=== PATIENT | male | born 1990 | race African-American/Black ===

== ENCOUNTER 2017-04-07 14:39 | Inpatient (IN) | payer MEDICAID ==
[~2017-04-07] VITALS: Ht 170.2 cm; Wt 79.4 kg
[2017-04-07] MEDS ORDERED: ONDANSETRON 4MG ODT PO ONE (15:30)
[2017-04-07] MEDS ORDERED: SODIUM CHLORIDE 0.9% 1,000 ML IV ONE (15:30)
[2017-04-07 16:24] LABS: BASOPHILS % 0.1 % (0.0-2.0); HEMATOCRIT. 43.4 % (42.0-52.0); HEMOGLOBIN. 14.9 g/dL (14.0-18.0); LYMPHOCYTES % 7.3 % (20.0-50.0); MEAN CORPUSCULAR HEMOGLOBIN 32.4 pg (28.0-32.0); MEAN CORPUSCULAR VOLUME 94.4 fL (80.0-94.0); MEAN PLATELET VOLUME 10.2 fl (7.4-10.4); MONOCYTES % 5.2 % (2.0-8.0); NEUTROPHILS % 87.4 % (40.0-76.0); PLATELET 254 x1000/uL (130-400); RED CELL DISTRIBUTION WIDTH 12.7 % (11.6-14.6)
[2017-04-07 16:36] LABS: CHLORIDE 94 mEq/L (98-107)
[2017-04-07 16:41] LABS: CARBON DIOXIDE 31 mEq/L (21-32)
[2017-04-07] MEDS ORDERED: INSULIN REGULAR (HUMULIN R) 300UNITS/3ML SUBCUT NR (16:45)
[2017-04-07] MEDS ORDERED: SODIUM CHLORIDE 0.9% 1000ML BAG (SEPSIS BOLUS) IV ONE (17:00)
[2017-04-07] MEDS ORDERED: SODIUM CHLORIDE 0.9% 2,430 ML IV NR (17:15)
[2017-04-07 17:28] LABS: BG BASE EXCESS 3.4 mmol/L (-2.0-2.0); BG CARBOXYHEMOGLOBIN 0.9 % (0.5-1.5); BG FRACTION INSPIRED OXYGEN 21; BG HCO3 ACT 27.9 mmol/L (22.0-26.0); BG METHEMOGLOBIN 0.3 % (0.0-1.5); BG OXYHEMOGLOBIN 95.8 % (94.0-97.0); BG PCO2 41.9 mmHg (35.0-45.0); BG PH 7.441 (7.350-7.450); BG PO2 91.3 mmHg (75.0-100.0); BG SAMPLE SITE RIGHT RADIAL; BG TOTAL HEMOGLOBIN 14.8 g/dL (12.0-18.0); BG VENT MODE ROOM AIR
[2017-04-07 18:19] LABS: CLARITY URINE CLEAR (CLEAR); COLOR URINE YELLOW (YELLOW); GLUCOSE URINE 3+ (NEGATIVE); KETONES URINE 2+ (NEGATIVE); LEUKOCYTE ESTERASE URINE NEGATIVE (NEGATIVE); NITRITE URINE NEGATIVE (NEGATIVE); OCCULT BLOOD URINE 2+ (NEGATIVE); PH URINE 5.5 (4.5-8.0); PROTEIN URINE 2+ (NEGATIVE); SPECIFIC GRAVITY URINE 1.038 (1.005-1.030); UROBILINOGEN URINE 0.2 E.U./dL (0.2-1.0)
[2017-04-07] MEDS ORDERED: BENAZEPRIL 20MG TABLET PO ONE (18:30)
[2017-04-07] MEDS ORDERED: MORPHINE SULFATE 4 MG/ML CPJ (NOT FOR IM USE) IV ONE (18:30)
[2017-04-07] MEDS ORDERED: DIPHENHYDRAMINE 50MG/ML VIAL IV PRN (18:45)
[2017-04-07] MEDS ORDERED: ONDANSETRON HCL 4MG/2ML VIAL IV PRN (18:45)
[2017-04-07] MEDS ORDERED: ACETAMINOPHEN 325MG TABLET PO PRN (18:45)
[2017-04-07] MEDS ORDERED: MAGNESIUM/ALUMINUM HYDROXIDE/SIMETHICONE 30ML UDC PO PRN (18:45)
[2017-04-07] MEDS ORDERED: DEXTROSE 50% WATER 50ML SYRINGE IV PRN (18:45)
[2017-04-07] MEDS ORDERED: PANTOPRAZOLE SODIUM 40 MG/VIAL IV SCH (21:00)
[2017-04-07 23:40] VITALS: BP 155/105
[2017-04-08 00:20] VITALS: BP 154/105
[2017-04-08] MEDS: BLOOD SUGAR DIAGNOSTIC STRIP TEST SCH ×5 (01:12→20:47)
[2017-04-08] MEDS: MORPHINE SULFATE 4 MG/ML CPJ (NOT FOR IM USE) IV PRN ×4 (01:28→15:42)
[2017-04-08] MEDS: SODIUM CHLORIDE 0.9% 1,000 ML IV SCH ×4 (01:29→20:47)
[2017-04-08] MEDS: INSULIN LISPRO 100 UNITS/ML SUBCUT SCH ×5 (01:54→22:02)
[2017-04-08] MEDS: CLONIDINE 0.1MG TABLET PO PRN ×2 (03:20→12:33)
[2017-04-08 04:00] VITALS: BP 134/87
[2017-04-08 08:00] VITALS: BP 142/93
[2017-04-08] MEDS: PANTOPRAZOLE SODIUM 40 MG/VIAL IV SCH (08:55)
[2017-04-08 12:00] VITALS: BP 168/108
[2017-04-08 16:00] VITALS: BP 139/111
[2017-04-08 20:00] VITALS: BP 128/98
[2017-04-08] MEDS ORDERED: INSULIN DETEMIR UD 100 UNITS/ML SYR SUBCUT SCH ×2 (22:00)
[2017-04-09] VITALS: BP 124/92
[2017-04-09 00:51] LABS: *AMPHETAMINES SCREEN URINE NEGATIVE (NEGATIVE); *BARBITURATES SCREEN URINE NEGATIVE (NEGATIVE); *BENZODIAZEPINES SCREEN URINE NEGATIVE (NEGATIVE); *COCAINE SCREEN URINE NEGATIVE (NEGATIVE); CANNABINOID URINE SCREEN PRESUMTIVE POSITIVE (NEGATIVE); METHADONE URINE SCREEN NEGATIVE (NEGATIVE); OPIATES URINE SCREEN PRESUMTIVE POSITIVE (NEGATIVE); PHENCYCLIDINE URINE SCREEN NEGATIVE (NEGATIVE)
[2017-04-09] MEDS: MORPHINE SULFATE 4 MG/ML CPJ (NOT FOR IM USE) IV PRN ×2 (01:25→11:52)
[2017-04-09 04:00] VITALS: BP 131/96
[2017-04-09] MEDS: BLOOD SUGAR DIAGNOSTIC STRIP TEST SCH ×2 (06:40→12:36)
[2017-04-09] MEDS: INSULIN LISPRO 100 UNITS/ML SUBCUT SCH ×2 (07:50→12:38)
[2017-04-09 08:00] VITALS: BP 137/99
[2017-04-09] MEDS ORDERED: LOSARTAN POTASSIUM 100 MG TABLET PO SCH (09:00)
[2017-04-09] MEDS: PANTOPRAZOLE SODIUM 40 MG/VIAL IV SCH (10:40)
[2017-04-09] MEDS: CLONIDINE 0.1MG TABLET PO PRN (11:51)
[2017-04-09 12:00] VITALS: BP 164/121
[2017-04-09 15:23] VITALS: BP 153/110
[2017-04-09 16:00] VITALS: BP 153/110
== END 2017-04-09 16:55 | disposition home or self-care (01) | DRG 241 ==
LOC: ER 14:40 → 6EST 17:47 → ENRESERV 22:34
PROVIDERS: ADMIT Internal Medicine; ATTEND Internal Medicine
DX: K29.70 Gastritis, unspecified, without bleeding (principal); E10.10 Type 1 diabetes mellitus with ketoacidosis without coma; K31.84 Gastroparesis; E10.43 Type 1 diabetes mellitus with diabetic autonomic (poly)neuropathy; I10 Essential (primary) hypertension; F17.210 Nicotine dependence, cigarettes, uncomplicated; Z90.49 Acquired absence of other specified parts of digestive tract; Z59.0 Homelessness
CPT/HCPCS: 36415; 36600; 71010; 80053; 80305; 81001; 82010; 82375; 82805; 82962; 83036; 85025; 96361; 96372; 96374; 99285; C9113; J1815; J2270; J2405; J7030; Q0162

== ENCOUNTER 2020-03-25 02:12 | Emergency (ER) | payer MEDICAID ==
[~2020-03-25] VITALS: Ht 177.8 cm; Wt 86.0 kg
[2020-03-25 05:20] VITALS: BP 159/106
== END 2020-03-25 05:20 | disposition home or self-care (01) ==
LOC: ER 02:44
DX: E11.649 Type 2 diabetes mellitus with hypoglycemia without coma (principal); R55 Syncope and collapse; I10 Essential (primary) hypertension; F12.10 Cannabis abuse, uncomplicated
CPT/HCPCS: 82962; 99283

== ENCOUNTER 2020-05-30 10:35 | Emergency (ER) | payer MEDICAID ==
[~2020-05-30] VITALS: Ht 170.2 cm; Wt 80.0 kg
[2020-05-30] MEDS ORDERED: ONDANSETRON HCL 4MG/2ML INJ IV STA (11:04)
[2020-05-30] MEDS ORDERED: SODIUM CHLORIDE 0.9% 1,000 ML IV ONE ×2 (11:04→14:26)
[2020-05-30] MEDS ORDERED: FAMOTIDINE 20MG/2ML VIAL IV STA (11:04)
[2020-05-30] MEDS ORDERED: MORPHINE SULFATE 4 MG/ML CPJ (NOT FOR IM USE) IV STA ×2 (11:04→14:26)
[2020-05-30] MEDS ORDERED: DEXTROSE 50% WATER 50ML SYRINGE IV ONE (11:15)
[2020-05-30 11:34] LABS: BASOPHILS % 0.5 % (0.0-2.0); EOSINOPHILS % 0.2 % (0.0-5.0); HEMATOCRIT. 37.8 % (42.0-52.0); HEMOGLOBIN. 12.8 g/dL (14.0-18.0); LYMPHOCYTES % 14.7 % (20.0-50.0); MEAN CORPUSCULAR HEMOGLOBIN 32.4 pg (28.0-32.0); MEAN CORPUSCULAR VOLUME 95.5 fL (80.0-94.0); MEAN PLATELET VOLUME 9.7 fl (7.4-10.4); MONOCYTES % 5.9 % (2.0-8.0); NEUTROPHILS % 78.7 % (40.0-76.0); PLATELET 262 x1000/uL (130-400); RED BLOOD CELL COUNT 3.95 mill/uL (4.7-6.1); RED CELL DISTRIBUTION WIDTH 13.5 % (11.6-14.6)
[2020-05-30 11:44] LABS: PROTHROMBIN TIME 10.6 sec (9.6-11.0)
[2020-05-30 11:49] LABS: CHLORIDE 104 mEq/L (98-107)
[2020-05-30 11:54] LABS: ETHANOL BLOOD < 10 mg/dL
[2020-05-30 16:39] VITALS: BP 151/103
== END 2020-05-30 16:39 | disposition home or self-care (01) ==
LOC: ER 10:35
DX: R19.7 Diarrhea, unspecified (principal); R11.10 Vomiting, unspecified; E11.649 Type 2 diabetes mellitus with hypoglycemia without coma; I10 Essential (primary) hypertension; F12.10 Cannabis abuse, uncomplicated; Z79.4 Long term (current) use of insulin
CPT/HCPCS: 36415; 74176; 80053; 80320; 82962; 83690; 85025; 85610; 96374; 96375; 96376; 99284; J2270; J2405; J3490; J7030; G0480

== ENCOUNTER 2021-07-30 04:21 | Inpatient (IN) | payer MEDICAID ==
[~2021-07-30] VITALS: Ht 172.7 cm; Wt 78.5 kg
[2021-07-30] MEDS ORDERED: ONDANSETRON HCL 4MG/2ML INJ IV STA (05:36)
[2021-07-30] MEDS ORDERED: KETOROLAC 30MG/ML VIAL IV STA (05:36)
[2021-07-30 05:39] LABS: CHLORIDE 106 mEq/L (98-107)
[2021-07-30 05:41] LABS: HEMATOCRIT. 34.1 % (42.0-52.0); HEMOGLOBIN. 11.7 g/dL (14.0-18.0); MEAN CORPUSCULAR HEMOGLOBIN 32.5 pg (28.0-32.0); MEAN CORPUSCULAR VOLUME 94.6 fL (80.0-94.0); MEAN PLATELET VOLUME 8.8 fl (7.4-10.4); PLATELET 342 x1000/uL (130-400); RED BLOOD CELL COUNT 3.61 mill/uL (4.7-6.1); RED CELL DISTRIBUTION WIDTH 14.1 % (11.6-14.6)
[2021-07-30] MEDS ORDERED: SODIUM CHLORIDE 0.9% 1,000 ML IV ONE (05:45)
[2021-07-30 06:24] LABS: PROTHROMBIN TIME 10.9 sec (9.6-11.0)
[2021-07-30] MEDS ORDERED: MORPHINE SULFATE 4 MG/ML CPJ (NOT FOR IM USE) IV ONE ×2 (07:45→09:15)
[2021-07-30 08:20] LABS: PLATELET ESTIMATE NORMAL
[2021-07-30] MEDS ORDERED: MORPHINE SULFATE 2 MG/ML CPJ (NOT FOR IM USE) IV ONE ×2 (08:30→09:45)
[2021-07-30 08:53] LABS: CLARITY URINE CLEAR (CLEAR); COLOR URINE YELLOW (YELLOW); KETONES URINE TRACE (NEGATIVE); LEUKOCYTE ESTERASE URINE NEGATIVE (NEGATIVE); NITRITE URINE NEGATIVE (NEGATIVE); OCCULT BLOOD URINE 2+ (NEGATIVE); PH URINE 6.5 (4.5-8.0); PROTEIN URINE 4+ (NEGATIVE); SPECIFIC GRAVITY URINE 1.022 (1.005-1.030); UROBILINOGEN URINE 0.2 E.U./dL (0.2-1.0)
[2021-07-30] MEDS ORDERED: HYDRALAZINE 20MG/ML VIAL IV ONE (09:00)
[2021-07-30] MEDS ORDERED: ONDANSETRON HCL 4MG/2ML INJ IV ONE (09:15)
[2021-07-30] MEDS ORDERED: DOCUSATE SODIUM 100MG CAPSULE PO PRN (10:15)
[2021-07-30] MEDS ORDERED: IPRATROPIUM/ALBUTEROL 0.5-3(2.5)MG/3ML NEB NEB PRN (10:15)
[2021-07-30] MEDS ORDERED: MAGNESIUM/ALUMINUM HYDROXIDE/SIMETHICONE 30ML UDC PO PRN (10:15)
[2021-07-30] MEDS ORDERED: GUAIFENESIN 200MG/10ML SUGAR FREE UDC PO PRN (10:15)
[2021-07-30] MEDS ORDERED: ACETAMINOPHEN 325MG TABLET PO PRN (10:15)
[2021-07-30] MEDS ORDERED: DIPHENHYDRAMINE 50MG/ML VIAL IV PRN (10:15)
[2021-07-30] MEDS ORDERED: MORPHINE SULFATE 2 MG/ML CPJ (NOT FOR IM USE) IV PRN (10:15)
[2021-07-30] MEDS ORDERED: NA PHOS,M-B/NA PHOS,DI-BA ENEMA 118ML PR PRN (10:15)
[2021-07-30] MEDS ORDERED: LEVOFLOXACIN 500MG PREMIX 100 ML IV SCH (11:00)
[2021-07-30] MEDS: HYDROCODONE/ACETAMINOPHEN 5/325MG TABLET PO PRN ×2 (11:51→18:34)
[2021-07-30] MEDS: ENOXAPARIN 40MG/0.4ML SYR SUBCUT SCH (11:52)
[2021-07-30] MEDS: SODIUM CHLORIDE 0.45% 1,000 ML IV SCH ×2 (11:52→23:35)
[2021-07-30] MEDS: CLONIDINE 0.1MG TABLET PO PRN ×2 (13:19→20:10)
[2021-07-30] MEDS ORDERED: METRONIDAZOLE 500 MG PREMIX 100 ML IV SCH (14:00)
[2021-07-30] MEDS: LORAZEPAM 2MG/ML CPJ IV PRN (15:08)
[2021-07-30] MEDS: METRONIDAZOLE 500MG TABLET PO SCH ×2 (16:43→23:24)
[2021-07-30] MEDS ORDERED: DEXTROSE 50% WATER 50ML SYRINGE IV PRN (18:00)
[2021-07-30] MEDS: INSULIN LISPRO 100 UNITS/ML SUBCUT SCH ×2 (18:34→21:48)
[2021-07-30 20:25] VITALS: BP 181/111
[2021-07-30 20:45] VITALS: BP 181/111
[2021-07-30] MEDS: BLOOD SUGAR DIAGNOSTIC STRIP TEST SCH (21:00)
[2021-07-30] MEDS: ONDANSETRON HCL 4MG/2ML INJ IV PRN (21:48)
[2021-07-31] VITALS (7 sets, daily range): BP systolic 123–197; BP diastolic 76–125
[2021-07-31] MEDS ORDERED: NALOXONE HCL 0.4MG/ML VIAL IV PRN (00:15)
[2021-07-31] MEDS: AMLODIPINE 10MG TABLET PO SCH ×2 (00:19→09:09)
[2021-07-31] MEDS: HYDRALAZINE HCL 50MG TABLET PO SCH ×2 (00:19→09:09)
[2021-07-31] MEDS ORDERED: LISI20TA31 MT (00:56)
[2021-07-31] MEDS: HYDROCODONE/ACETAMINOPHEN 5/325MG TABLET PO PRN (05:50)
[2021-07-31] MEDS: ONDANSETRON HCL 4MG/2ML INJ IV PRN (05:51)
[2021-07-31] MEDS: METRONIDAZOLE 500MG TABLET PO SCH ×3 (05:52→22:44)
[2021-07-31] MEDS: BLOOD SUGAR DIAGNOSTIC STRIP TEST SCH ×4 (07:04→20:41)
[2021-07-31] MEDS: INSULIN LISPRO 100 UNITS/ML SUBCUT SCH ×4 (07:12→21:00)
[2021-07-31 08:01] LABS: CHLORIDE 102 mEq/L (98-107)
[2021-07-31 08:09] LABS: HEMATOCRIT. 31.4 % (42.0-52.0); HEMOGLOBIN. 10.6 g/dL (14.0-18.0); LYMPHOCYTES % 9.5 % (20.0-50.0); MEAN CORPUSCULAR HEMOGLOBIN 32.4 pg (28.0-32.0); MEAN CORPUSCULAR VOLUME 95.3 fL (80.0-94.0); MEAN PLATELET VOLUME 9.2 fl (7.4-10.4); MONOCYTES % 6.6 % (2.0-8.0); NEUTROPHILS % 83.9 % (40.0-76.0); PLATELET 291 x1000/uL (130-400); RED BLOOD CELL COUNT 3.29 mill/uL (4.7-6.1); RED CELL DISTRIBUTION WIDTH 13.9 % (11.6-14.6)
[2021-07-31 08:13] LABS: LDL CHOLESTEROL 161 mg/dL (5-100)
[2021-07-31 08:14] LABS: HDL CHOLESTEROL 41 mg/dL (40-59); T4 FREE 1.22 ng/dL (0.76-1.46)
[2021-07-31] MEDS: CLONIDINE 0.2MG TABLET PO PRN ×2 (09:10→16:49)
[2021-07-31] MEDS: ENOXAPARIN 40MG/0.4ML SYR SUBCUT SCH (09:12)
[2021-07-31] MEDS: SODIUM CHLORIDE 0.45% 1,000 ML IV SCH (12:52)
[2021-07-31] MEDS: HYDRALAZINE HCL 25MG TABLET PO SCH ×2 (14:32→16:50)
[2021-07-31] MEDS: LEVOFLOXACIN 500MG PREMIX 100 ML IV SCH (14:33)
[2021-07-31] MEDS: PANTOPRAZOLE SODIUM 40 MG/VIAL IV SCH (16:50)
[2021-07-31] MEDS: POLYETHYLENE GLYCOL 3350 (17GM) 1 DOSE PACK PO SCH (16:50)
[2021-07-31] MEDS: METOPROLOL TARTRATE 25MG TABLET PO SCH (17:49)
[2021-07-31] MEDS: METOCLOPRAMIDE HCL 10MG/2ML VIAL IV SCH (18:02)
[2021-07-31] MEDS: LORAZEPAM 2MG/ML CPJ IV PRN (18:02)
[2021-08-01] VITALS: BP 134/82
[2021-08-01] MEDS: METOCLOPRAMIDE HCL 10MG/2ML VIAL IV SCH ×3 (00:06→12:46)
[2021-08-01] MEDS: SODIUM CHLORIDE 0.45% 1,000 ML IV SCH ×2 (02:23→15:13)
[2021-08-01 04:00] VITALS: BP 140/88
[2021-08-01] MEDS: BLOOD SUGAR DIAGNOSTIC STRIP TEST SCH ×2 (05:58→11:40)
[2021-08-01] MEDS: METRONIDAZOLE 500MG TABLET PO SCH ×2 (05:59→14:00)
[2021-08-01] MEDS: INSULIN LISPRO 100 UNITS/ML SUBCUT SCH ×2 (06:12→12:48)
[2021-08-01 08:00] VITALS: BP 128/80
[2021-08-01] MEDS: PANTOPRAZOLE SODIUM 40 MG/VIAL IV SCH (09:17)
[2021-08-01] MEDS: POLYETHYLENE GLYCOL 3350 (17GM) 1 DOSE PACK PO SCH (09:17)
[2021-08-01] MEDS: METOPROLOL TARTRATE 25MG TABLET PO SCH (09:18)
[2021-08-01] MEDS: AMLODIPINE 10MG TABLET PO SCH (09:18)
[2021-08-01] MEDS: HYDRALAZINE HCL 25MG TABLET PO SCH ×2 (09:18→13:00)
[2021-08-01 09:46] LABS: BASOPHILS % 0.5 % (0.0-2.0); EOSINOPHILS % 0.4 % (0.0-5.0); HEMATOCRIT. 28.3 % (42.0-52.0); HEMOGLOBIN. 10.1 g/dL (14.0-18.0); LYMPHOCYTES % 18.3 % (20.0-50.0); MEAN CORPUSCULAR HEMOGLOBIN 33.6 pg (28.0-32.0); MEAN CORPUSCULAR VOLUME 94.4 fL (80.0-94.0); MEAN PLATELET VOLUME 9.1 fl (7.4-10.4); MONOCYTES % 5.9 % (2.0-8.0); NEUTROPHILS % 74.9 % (40.0-76.0); PLATELET 245 x1000/uL (130-400); RED BLOOD CELL COUNT 2.99 mill/uL (4.7-6.1); RED CELL DISTRIBUTION WIDTH 13.8 % (11.6-14.6)
[2021-08-01 10:49] LABS: VITAMIN B12 SERUM 520 pg/mL (211-911)
[2021-08-01] MEDS: ENOXAPARIN 40MG/0.4ML SYR SUBCUT SCH (11:00)
[2021-08-01 12:00] VITALS: BP 120/80
[2021-08-01 12:09] LABS: FERRITIN 97 ng/mL (22-322)
[2021-08-01] MEDS: LEVOFLOXACIN 500MG PREMIX 100 ML IV SCH (14:17)
[2021-08-01 14:27] VITALS: BP 118/65
== END 2021-08-01 16:27 | disposition home or self-care (01) | DRG 48 ==
LOC: ER 04:21 → 6EST 09:10 → EDBEDREQ 09:19 → EDBEDREQTM 09:19 → ENRESERV 19:45 → 7EST 07-31 22:29
PROVIDERS: ADMIT Internal Medicine; ATTEND Internal Medicine
DX: E11.43 Type 2 diabetes mellitus with diabetic autonomic (poly)neuropathy (principal); N17.0 Acute kidney failure with tubular necrosis; K31.84 Gastroparesis; E78.5 Hyperlipidemia, unspecified; E86.0 Dehydration; I10 Essential (primary) hypertension; F12.90 Cannabis use, unspecified, uncomplicated; Z90.49 Acquired absence of other specified parts of digestive tract; R65.10 Systemic inflammatory response syndrome (SIRS) of non-infectious origin without acute organ dysfunction
CPT/HCPCS: 36415; 74176; 80048; 80053; 80061; 81003; 82607; 82728; 82747; 82962; 83036; 83540; 83550; 84439; 84443; 85014; 85025; 85044; 93005; 99285; C1893; C9113; J0360; J1650; J1815; J1885; J1956; J2060; J2270; J2405; J2765; J7030

== ENCOUNTER 2021-08-23 07:12 | Inpatient (IN) | payer MEDICAID ==
[~2021-08-23] VITALS: Ht 170.2 cm; Wt 83.9 kg
[~2021-08-23 07:12] MED LIST: LISI20TA31 MT
[2021-08-23] MEDS ORDERED: FAMOTIDINE 20MG/2ML VIAL IV STA (07:47)
[2021-08-23] MEDS ORDERED: MORPHINE SULFATE 4 MG/ML CPJ (NOT FOR IM USE) IV STA (07:47)
[2021-08-23] MEDS ORDERED: ONDANSETRON HCL 4MG/2ML INJ IV STA (07:47)
[2021-08-23] MEDS ORDERED: SODIUM CHLORIDE 0.9% 1,000 ML IV ONE (08:00)
[2021-08-23 08:37] LABS: BASOPHILS % 0.3 % (0.0-2.0); HEMATOCRIT. 33.4 % (42.0-52.0); HEMOGLOBIN. 11.1 g/dL (14.0-18.0); LYMPHOCYTES % 8.9 % (20.0-50.0); MEAN CORPUSCULAR HEMOGLOBIN 32.1 pg (28.0-32.0); MEAN CORPUSCULAR VOLUME 96.5 fL (80.0-94.0); NEUTROPHILS % 83.8 % (40.0-76.0); PLATELET 325 x1000/uL (130-400); RED BLOOD CELL COUNT 3.46 mill/uL (4.7-6.1); RED CELL DISTRIBUTION WIDTH 14.2 % (11.6-14.6)
[2021-08-23 08:45] LABS: CHLORIDE 108 mEq/L (98-107)
[2021-08-23] MEDS ORDERED: MORPHINE SULFATE 4 MG/ML CPJ (NOT FOR IM USE) IV ONE (09:45)
[2021-08-23] MEDS ORDERED: HYDRALAZINE 20MG/ML VIAL IV ONE ×2 (09:45→10:45)
[2021-08-23] MEDS ORDERED: ONDANSETRON HCL 4MG/2ML INJ IV PRN (13:00)
[2021-08-23] MEDS ORDERED: IPRATROPIUM/ALBUTEROL 0.5-3(2.5)MG/3ML NEB HHN PRN (13:00)
[2021-08-23] MEDS ORDERED: MORPHINE SULFATE 2 MG/ML CPJ (NOT FOR IM USE) IV PRN (13:00)
[2021-08-23] MEDS ORDERED: ACETAMINOPHEN 325MG TABLET PO PRN (13:00)
[2021-08-23] MEDS ORDERED: DIPHENHYDRAMINE 50MG/ML VIAL IV PRN (13:00)
[2021-08-23] MEDS ORDERED: NALOXONE HCL 0.4MG/ML VIAL IV PRN (13:15)
[2021-08-23] MEDS: CLONIDINE 0.1MG TABLET PO PRN ×2 (14:26→21:20)
[2021-08-23 15:26] VITALS: BP 154/100
[2021-08-23 15:36] VITALS: BP 154/100
[2021-08-23 15:59] LABS: CLARITY URINE CLEAR (CLEAR); COLOR URINE YELLOW (YELLOW); KETONES URINE NEGATIVE (NEGATIVE); LEUKOCYTE ESTERASE URINE NEGATIVE (NEGATIVE); NITRITE URINE NEGATIVE (NEGATIVE); OCCULT BLOOD URINE 2+ (NEGATIVE); PROTEIN URINE 4+ (NEGATIVE); UROBILINOGEN URINE 0.2 E.U./dL (0.2-1.0)
[2021-08-23] MEDS: SODIUM CHLORIDE 0.9% 1,000 ML IV SCH (17:45)
[2021-08-23] MEDS ORDERED: DEXTROSE 50% WATER 50ML SYRINGE IV PRN (19:00)
[2021-08-23 20:00] VITALS: BP 166/103
[2021-08-23] MEDS: AMLODIPINE 5MG TABLET PO SCH (21:20)
[2021-08-23] MEDS: INSULIN LISPRO 100 UNITS/ML SUBCUT SCH (21:21)
[2021-08-23] MEDS: BLOOD SUGAR DIAGNOSTIC STRIP TEST SCH (21:21)
[2021-08-24] VITALS: BP 155/100
[2021-08-24] MEDS: CLONIDINE 0.1MG TABLET PO PRN ×2 (03:47→09:44)
[2021-08-24 04:00] VITALS: BP 178/114
[2021-08-24] MEDS: SODIUM CHLORIDE 0.9% 1,000 ML IV SCH (06:20)
[2021-08-24] MEDS: BLOOD SUGAR DIAGNOSTIC STRIP TEST SCH ×2 (06:36→11:49)
[2021-08-24] MEDS: INSULIN LISPRO 100 UNITS/ML SUBCUT SCH ×2 (06:36→13:07)
[2021-08-24 08:00] VITALS: BP 190/126
[2021-08-24] MEDS: AMLODIPINE 5MG TABLET PO SCH (09:44)
[2021-08-24] MEDS ORDERED: HYDRALAZINE 20MG/ML VIAL IV NR (10:00)
[2021-08-24] MEDS ORDERED: HYDROCODONE/ACETAMINOPHEN 5/325MG TABLET PO PRN (11:15)
[2021-08-24 11:40] LABS: BASOPHILS % 0.7 % (0.0-2.0); EOSINOPHILS % 0.6 % (0.0-5.0); HEMATOCRIT. 30.1 % (42.0-52.0); HEMOGLOBIN. 10.3 g/dL (14.0-18.0); LYMPHOCYTES % 13.3 % (20.0-50.0); MEAN CORPUSCULAR HEMOGLOBIN 32.5 pg (28.0-32.0); MEAN CORPUSCULAR VOLUME 95.3 fL (80.0-94.0); MEAN PLATELET VOLUME 8.8 fl (7.4-10.4); MONOCYTES % 4.9 % (2.0-8.0); NEUTROPHILS % 80.5 % (40.0-76.0); PLATELET 275 x1000/uL (130-400); RED BLOOD CELL COUNT 3.16 mill/uL (4.7-6.1); RED CELL DISTRIBUTION WIDTH 14.4 % (11.6-14.6)
[2021-08-24 11:51] LABS: CHLORIDE 106 mEq/L (98-107)
[2021-08-24 11:56] LABS: AMYLASE 96 IU/L (25-115)
[2021-08-24 12:00] VITALS: BP 151/99
[2021-08-24] MEDS ORDERED: METOCLOPRAMIDE HCL 10MG/2ML VIAL IV SCH (12:00)
[2021-08-24] MEDS ORDERED: HYDRALAZINE HCL 50MG TABLET PO SCH (14:00)
[2021-08-24] MEDS ORDERED: CLONIDINE 0.1MG TABLET PO SCH (14:00)
[2021-08-24 14:28] VITALS: BP 151/99
== END 2021-08-24 15:15 | disposition home or self-care (01) | DRG 249 ==
LOC: ER 07:12 → 6EST 12:04 → EDBEDREQ 12:06 → EDBEDREQTM 12:06 → EDBEDREQSVC 12:06 → ENRESERV 12:10 → 7EST 14:49
PROVIDERS: ADMIT Internal Medicine; ATTEND Internal Medicine
DX: K52.9 Noninfective gastroenteritis and colitis, unspecified (principal); E10.43 Type 1 diabetes mellitus with diabetic autonomic (poly)neuropathy; E46 Unspecified protein-calorie malnutrition; N12 Tubulo-interstitial nephritis, not specified as acute or chronic; K31.84 Gastroparesis; F17.200 Nicotine dependence, unspecified, uncomplicated; I10 Essential (primary) hypertension; I16.0 Hypertensive urgency; E86.0 Dehydration; Z59.00 Homelessness unspecified; Z79.4 Long term (current) use of insulin; Z79.899 Other long term (current) drug therapy; Z90.49 Acquired absence of other specified parts of digestive tract; Z68.29 Body mass index [BMI] 29.0-29.9, adult
CPT/HCPCS: 36415; 76700; 80053; 81003; 82150; 82962; 83036; 83735; 84443; 84484; 85025; 93005; 93306; 93970; 99285; J0360; J1815; J2270; J2405; J2765; J3490; J7030

== ENCOUNTER 2021-08-27 19:30 | Emergency (ER) | payer MEDICAID ==
[~2021-08-27] VITALS: Ht 170.2 cm; Wt 84.2 kg
[2021-08-27] MEDS ORDERED: ONDANSETRON HCL 4MG/2ML INJ IV STA (19:47)
[2021-08-27] MEDS ORDERED: FAMOTIDINE 20MG/2ML VIAL IV STA (19:47)
[2021-08-27] MEDS ORDERED: MAGNESIUM/ALUMINUM HYDROXIDE/SIMETHICONE 30ML UDC PO STA (19:47)
[2021-08-27] MEDS ORDERED: SODIUM CHLORIDE 0.9% 1,000 ML IV ONE (20:00)
[2021-08-27 20:32] LABS: CHLORIDE 105 mEq/L (98-107)
[2021-08-27] MEDS ORDERED: HALOPERIDOL LACTATE 5MG/ML VIAL IM ONE (20:45)
[2021-08-27 21:44] LABS: CLARITY URINE CLEAR (CLEAR); COLOR URINE YELLOW (YELLOW); KETONES URINE NEGATIVE (NEGATIVE); LEUKOCYTE ESTERASE URINE NEGATIVE (NEGATIVE); NITRITE URINE NEGATIVE (NEGATIVE); OCCULT BLOOD URINE 1+ (NEGATIVE); PH URINE 6.5 (4.5-8.0); PROTEIN URINE 4+ (NEGATIVE); SPECIFIC GRAVITY URINE 1.017 (1.005-1.030); UROBILINOGEN URINE 0.2 E.U./dL (0.2-1.0)
[2021-08-27] MEDS ORDERED: SODIUM CHLORIDE 0.9% 1,000 ML IV NR (22:00)
[2021-08-27] MEDS ORDERED: HALO2TAB2 MT (23:47)
[2021-08-28 01:34] VITALS: BP 158/97
== END 2021-08-28 01:51 | disposition home or self-care (01) ==
LOC: ER 19:30
DX: R10.13 Epigastric pain (principal); F12.10 Cannabis abuse, uncomplicated; E11.9 Type 2 diabetes mellitus without complications
CPT/HCPCS: 36415; 80053; 81003; 82010; 82962; 83690; 93005; 96361; 96372; 96374; 96375; 99285; J1630; J2405; J3490; J7030

== ENCOUNTER 2021-09-02 00:50 | Emergency (ER) | payer MEDICAID ==
[~2021-09-02] VITALS: Ht 170.2 cm; Wt 84.0 kg
[~2021-09-02 00:50] MED LIST changes: +HALO2TAB2 MT
[2021-09-02] MEDS ORDERED: MAGNESIUM/ALUMINUM HYDROXIDE/SIMETHICONE 30ML UDC PO STA (01:32)
[2021-09-02] MEDS ORDERED: ONDANSETRON HCL 4MG/2ML INJ IV STA (01:32)
[2021-09-02] MEDS ORDERED: FAMOTIDINE 20MG/2ML VIAL IV STA (01:32)
[2021-09-02] MEDS ORDERED: SODIUM CHLORIDE 0.9% 1,000 ML IV ONE ×2 (01:45→04:30)
[2021-09-02] MEDS ORDERED: MORPHINE SULFATE 4 MG/ML CPJ (NOT FOR IM USE) IV ONE (04:00)
[2021-09-02 04:06] LABS: BASOPHILS % 1.1 % (0.0-2.0); EOSINOPHILS % 0.3 % (0.0-5.0); HEMATOCRIT. 33.7 % (42.0-52.0); HEMOGLOBIN. 11.2 g/dL (14.0-18.0); LYMPHOCYTES % 8.4 % (20.0-50.0); MEAN CORPUSCULAR HEMOGLOBIN 31.9 pg (28.0-32.0); MEAN CORPUSCULAR VOLUME 95.7 fL (80.0-94.0); MEAN PLATELET VOLUME 8.9 fl (7.4-10.4); MONOCYTES % 2.8 % (2.0-8.0); NEUTROPHILS % 87.4 % (40.0-76.0); PLATELET 353 x1000/uL (130-400); RED BLOOD CELL COUNT 3.52 mill/uL (4.7-6.1)
[2021-09-02 04:10] LABS: CHLORIDE 105 mEq/L (98-107)
[2021-09-02 04:13] LABS: ETHANOL BLOOD < 10 mg/dL
[2021-09-02 04:18] LABS: BETA HYDROXYBUTYRATE 0.6 mMol/L (0.0-0.3)
[2021-09-02] MEDS ORDERED: KETOROLAC 15MG/ML VIAL IV ONE (04:30)
[2021-09-02] MEDS ORDERED: ONDA4TAB5 MT (06:08)
[2021-09-02] MEDS ORDERED: FAMO-135 MT (06:08)
[2021-09-02] MEDS ORDERED: ACETAMINOPHEN 325MG TABLET PO ONE (07:15)
[2021-09-02] MEDS ORDERED: ONDANSETRON HCL 4MG/2ML INJ IV ONE (07:30)
[2021-09-02 07:51] VITALS: BP 160/85
== END 2021-09-02 07:52 | disposition home or self-care (01) ==
LOC: ER 00:50
DX: A08.4 Viral intestinal infection, unspecified (principal); E10.65 Type 1 diabetes mellitus with hyperglycemia; F12.10 Cannabis abuse, uncomplicated; Z79.4 Long term (current) use of insulin
CPT/HCPCS: 36415; 80053; 80320; 82010; 82962; 83690; 85025; 96361; 96374; 96375; 99284; J2270; J2405; J3490; J7030; G0480

== ENCOUNTER 2022-03-06 17:24 | Inpatient (IN) | payer MEDICAID ==
[~2022-03-06] VITALS: Ht 172.7 cm; Wt 88.5 kg
[~2022-03-06 17:24] MED LIST changes: +FAMO-135 MT; +ONDA4TAB5 MT
[2022-03-06] MEDS ORDERED: ONDANSETRON HCL 4MG/2ML INJ IV STA (17:38)
[2022-03-06] MEDS ORDERED: SODIUM CHLORIDE 0.9% 1,000 ML IV ONE (17:45)
[2022-03-06] MEDS ORDERED: MORPHINE SULFATE 4 MG/ML CPJ (NOT FOR IM USE) IV STA (18:02)
[2022-03-06] MEDS ORDERED: LORAZEPAM 2MG/ML CPJ IV ONE ×2 (18:15→19:15)
[2022-03-06 18:27] LABS: CHLORIDE 110 mEq/L (98-107)
[2022-03-06] MEDS ORDERED: LABETALOL 5MG/ML SYR 20 MG/4 ML SYRINGE IV ONE (19:00)
[2022-03-06] MEDS ORDERED: ENALAPRIL 2.5MG/2ML VIAL 2ML IV ONE (19:00)
[2022-03-06 19:07] LABS: BASOPHILS % 0.6 % (0.0-2.0); EOSINOPHILS % 0.4 % (0.0-5.0); HEMATOCRIT. 34.9 % (42.0-52.0); HEMOGLOBIN. 11.9 g/dL (14.0-18.0); LYMPHOCYTES % 9.3 % (20.0-50.0); MEAN CORPUSCULAR VOLUME 94.2 fL (80.0-94.0); MEAN PLATELET VOLUME 9.6 fl (7.4-10.4); MONOCYTES % 3.4 % (2.0-8.0); NEUTROPHILS % 86.3 % (40.0-76.0); PLATELET 389 x1000/uL (130-400); RED BLOOD CELL COUNT 3.71 mill/uL (4.7-6.1); RED CELL DISTRIBUTION WIDTH 14.6 % (11.6-14.6)
[2022-03-06] MEDS ORDERED: ENALAPRIL 1.25MG/ML VIAL 1ML IV NR (21:05)
[2022-03-06] MEDS ORDERED: MAGNESIUM/ALUMINUM HYDROXIDE/SIMETHICONE 30ML UDC PO PRN (23:30)
[2022-03-06] MEDS ORDERED: IPRATROPIUM/ALBUTEROL 0.5-3(2.5)MG/3ML NEB HHN PRN (23:30)
[2022-03-06] MEDS ORDERED: ACETAMINOPHEN 325MG TABLET PO PRN (23:30)
[2022-03-06] MEDS ORDERED: DOCUSATE SODIUM 100MG CAPSULE PO PRN (23:30)
[2022-03-07 00:15] VITALS: BP 196/129
[2022-03-07 00:26] LABS: CLARITY URINE CLEAR (CLEAR); COLOR URINE YELLOW (YELLOW); KETONES URINE TRACE (NEGATIVE); LEUKOCYTE ESTERASE URINE NEGATIVE (NEGATIVE); NITRITE URINE NEGATIVE (NEGATIVE); OCCULT BLOOD URINE 1+ (NEGATIVE); PROTEIN URINE 3+ (NEGATIVE); SPECIFIC GRAVITY URINE 1.017 (1.005-1.030); UROBILINOGEN URINE 0.2 E.U./dL (0.2-1.0)
[2022-03-07 00:37] LABS: *AMPHETAMINES SCREEN URINE NEGATIVE (NEGATIVE); *BARBITURATES SCREEN URINE NEGATIVE (NEGATIVE); *BENZODIAZEPINES SCREEN URINE NEGATIVE (NEGATIVE); *COCAINE SCREEN URINE NEGATIVE (NEGATIVE); CANNABINOID URINE SCREEN PRESUMTIVE POSITIVE (NEGATIVE); METHADONE URINE SCREEN NEGATIVE (NEGATIVE); OPIATES URINE SCREEN PRESUMTIVE POSITIVE (NEGATIVE); PHENCYCLIDINE URINE SCREEN NEGATIVE (NEGATIVE)
[2022-03-07] MEDS: HYDROCODONE/ACETAMINOPHEN 5/325MG TABLET PO PRN ×2 (01:00→06:36)
[2022-03-07] MEDS: PANTOPRAZOLE SODIUM 40 MG/VIAL IV SCH ×2 (01:00→08:13)
[2022-03-07] MEDS: LABETALOL 5MG/ML SYR 20 MG/4 ML SYRINGE IV PRN ×2 (01:01→12:29)
[2022-03-07] MEDS: ONDANSETRON HCL 4MG/2ML INJ IV PRN ×2 (02:53→13:43)
[2022-03-07 04:00] VITALS: BP 150/99
[2022-03-07 07:01] LABS: CHLORIDE 112 mEq/L (98-107)
[2022-03-07 07:11] LABS: CREATINE KINASE MB FRACTION 5.5 ng/mL (0.5-3.6)
[2022-03-07 07:16] LABS: HDL CHOLESTEROL 47 mg/dL (40-59); LDL CHOLESTEROL 199 mg/dL (5-100)
[2022-03-07 07:27] LABS: BASOPHILS % 0.3 % (0.0-2.0); HEMATOCRIT. 31.7 % (42.0-52.0); HEMOGLOBIN. 10.6 g/dL (14.0-18.0); LYMPHOCYTES % 7.7 % (20.0-50.0); MEAN CORPUSCULAR HEMOGLOBIN 31.5 pg (28.0-32.0); MEAN CORPUSCULAR VOLUME 94.2 fL (80.0-94.0); MEAN PLATELET VOLUME 9.3 fl (7.4-10.4); MONOCYTES % 3.9 % (2.0-8.0); NEUTROPHILS % 88.1 % (40.0-76.0); PLATELET 344 x1000/uL (130-400); RED BLOOD CELL COUNT 3.37 mill/uL (4.7-6.1); RED CELL DISTRIBUTION WIDTH 15.1 % (11.6-14.6)
[2022-03-07 08:05] VITALS: BP 190/114
[2022-03-07] MEDS: NIFEDIPINE XL 60MG TAB PO SCH (08:13)
[2022-03-07] MEDS ORDERED: DEXTROSE 50% WATER 50ML SYRINGE IV PRN (10:30)
[2022-03-07] MEDS: BLOOD SUGAR DIAGNOSTIC STRIP TEST SCH ×3 (12:04→21:00)
[2022-03-07] MEDS: INSULIN LISPRO 100 UNITS/ML SUBCUT SCH ×3 (12:29→22:06)
[2022-03-07 12:30] VITALS: BP 197/122
[2022-03-07 16:01] VITALS: BP 151/94
[2022-03-07 20:00] VITALS: BP 136/83
[2022-03-08] VITALS (7 sets, daily range): BP systolic 125–192; BP diastolic 78–126
[2022-03-08] MEDS: HYDROCODONE/ACETAMINOPHEN 5/325MG TABLET PO PRN ×2 (06:01→09:11)
[2022-03-08] MEDS: BLOOD SUGAR DIAGNOSTIC STRIP TEST SCH ×4 (06:12→21:17)
[2022-03-08] MEDS: INSULIN LISPRO 100 UNITS/ML SUBCUT SCH ×4 (09:08→21:00)
[2022-03-08] MEDS: PANTOPRAZOLE SODIUM 40 MG/VIAL IV SCH (09:10)
[2022-03-08] MEDS: NIFEDIPINE XL 60MG TAB PO SCH (09:10)
[2022-03-08] MEDS: SODIUM CHLORIDE 0.9% 1,000 ML IV SCH ×2 (09:15→18:10)
[2022-03-08] MEDS: ONDANSETRON HCL 4MG/2ML INJ IV PRN (10:32)
[2022-03-08] MEDS: METOCLOPRAMIDE HCL 10MG/2ML VIAL IV SCH ×2 (10:32→18:10)
[2022-03-08 11:17] LABS: PHOSPHORUS 2.8 mg/dL (2.5-4.9)
[2022-03-08] MEDS: CLONIDINE 0.1MG TABLET PO PRN (18:10)
[2022-03-08 19:36] LABS: CREATINE KINASE 392 IU/L (39-308)
[2022-03-08 19:55] LABS: PHOSPHORUS 2.9 mg/dL (2.5-4.9)
[2022-03-08] MEDS: HYDRALAZINE HCL 25MG TABLET PO SCH (21:15)
[2022-03-09] VITALS: BP 128/84
[2022-03-09 04:00] VITALS: BP 143/88
[2022-03-09] MEDS: SODIUM CHLORIDE 0.9% 1,000 ML IV SCH (05:47)
[2022-03-09] MEDS: METOCLOPRAMIDE HCL 10MG/2ML VIAL IV SCH ×3 (06:00→12:09)
[2022-03-09] MEDS: BLOOD SUGAR DIAGNOSTIC STRIP TEST SCH ×2 (06:07→12:09)
[2022-03-09 07:03] LABS: BASOPHILS % 0.8 % (0.0-2.0); EOSINOPHILS % 2.1 % (0.0-5.0); HEMATOCRIT. 29.2 % (42.0-52.0); HEMOGLOBIN. 10.3 g/dL (14.0-18.0); LYMPHOCYTES % 23.8 % (20.0-50.0); MEAN CORPUSCULAR HEMOGLOBIN 32.5 pg (28.0-32.0); MEAN CORPUSCULAR VOLUME 92.2 fL (80.0-94.0); MEAN PLATELET VOLUME 9.1 fl (7.4-10.4); MONOCYTES % 8.5 % (2.0-8.0); NEUTROPHILS % 64.8 % (40.0-76.0); PLATELET 280 x1000/uL (130-400); RED BLOOD CELL COUNT 3.16 mill/uL (4.7-6.1); RED CELL DISTRIBUTION WIDTH 14.5 % (11.6-14.6)
[2022-03-09 08:00] VITALS: BP 161/104
[2022-03-09] MEDS: HYDRALAZINE HCL 25MG TABLET PO SCH (08:47)
[2022-03-09] MEDS: NIFEDIPINE XL 60MG TAB PO SCH (08:48)
[2022-03-09] MEDS: PANTOPRAZOLE SODIUM 40 MG/VIAL IV SCH (08:48)
[2022-03-09] MEDS: INSULIN LISPRO 100 UNITS/ML SUBCUT SCH ×2 (08:49→12:09)
[2022-03-09] MEDS ORDERED: NIFE-32 PO (08:56)
[2022-03-09] MEDS ORDERED: METO5TAB86 MT (08:56)
[2022-03-09] MEDS ORDERED: LOSA25TA26 MT (08:56)
[2022-03-09] MEDS ORDERED: ATOR20TA65 MT (09:00)
[2022-03-09] MEDS ORDERED: GLIP5TAB12 MT ×2 (09:00)
[2022-03-09 12:00] VITALS: BP 140/91
[2022-03-09] MEDS: CLONIDINE 0.1MG TABLET PO PRN (12:09)
[2022-03-09 14:00] VITALS: BP 113/71
[2022-03-09 14:48] VITALS: BP 113/71
[2022-03-12 09:10] LABS: ANTI-NUCLEAR ANTIBODIES DIRECT Negative (Negative)
== END 2022-03-09 15:20 | disposition home or self-care (01) | DRG 241 ==
LOC: ER 17:24 → 6WST 22:41 → EDBEDREQTM 22:45 → EDBEDREQ 22:45 → ENRESERV 23:37
PROVIDERS: ADMIT Internal Medicine; ATTEND Internal Medicine
DX: K29.70 Gastritis, unspecified, without bleeding (principal); N17.9 Acute kidney failure, unspecified; R65.10 Systemic inflammatory response syndrome (SIRS) of non-infectious origin without acute organ dysfunction; E11.22 Type 2 diabetes mellitus with diabetic chronic kidney disease; D72.829 Elevated white blood cell count, unspecified; D64.9 Anemia, unspecified; E11.43 Type 2 diabetes mellitus with diabetic autonomic (poly)neuropathy; K31.84 Gastroparesis; N18.9 Chronic kidney disease, unspecified; F12.90 Cannabis use, unspecified, uncomplicated; I16.0 Hypertensive urgency; I12.9 Hypertensive chronic kidney disease with stage 1 through stage 4 chronic kidney disease, or unspecified chronic kidney disease
CPT/HCPCS: 36415; 71045; 76700; 80048; 80053; 80061; 80305; 80320; 81003; 82550; 82553; 82570; 82962; 83036; 83735; 84100; 84156; 84443; 84484; 85025; 86038; 86160; 93970; 99291; C9113; J1815; J2060; J2270; J2405; J2765; J3490; J7030; G0480

== ENCOUNTER 2022-03-17 02:22 | Emergency (ER) | payer MEDICAID ==
[~2022-03-17] VITALS: Ht 170.2 cm; Wt 89.4 kg
[~2022-03-17 02:22] MED LIST changes: +ATOR20TA65 MT; -LISI20TA31 MT; +LOSA25TA26 MT; +METO5TAB86 MT; +NIFE-32 PO
[2022-03-17] MEDS ORDERED: ONDANSETRON HCL 4MG/2ML INJ IV STA (02:32)
[2022-03-17] MEDS ORDERED: KETOROLAC 30MG/ML VIAL IV STA (02:32)
[2022-03-17] MEDS ORDERED: SODIUM CHLORIDE 0.9% 1,000 ML IV ONE (02:45)
[2022-03-17 03:05] LABS: BASOPHILS % 0.9 % (0.0-2.0); HEMOGLOBIN. 11.6 g/dL (14.0-18.0); LYMPHOCYTES % 10.4 % (20.0-50.0); MEAN CORPUSCULAR HEMOGLOBIN 31.8 pg (28.0-32.0); MEAN CORPUSCULAR VOLUME 93.2 fL (80.0-94.0); MEAN PLATELET VOLUME 9.4 fl (7.4-10.4); MONOCYTES % 3.4 % (2.0-8.0); NEUTROPHILS % 85.3 % (40.0-76.0); PLATELET 414 x1000/uL (130-400); RED BLOOD CELL COUNT 3.65 mill/uL (4.7-6.1); RED CELL DISTRIBUTION WIDTH 14.8 % (11.6-14.6)
[2022-03-17 03:15] LABS: CHLORIDE 108 mEq/L (98-107)
[2022-03-17] MEDS ORDERED: HALOPERIDOL LACTATE 5MG/ML VIAL IM ONE (03:15)
[2022-03-17 03:22] LABS: BETA HYDROXYBUTYRATE 0.5 mMol/L (0.0-0.3); ETHANOL BLOOD < 10 mg/dL
[2022-03-17 04:40] VITALS: BP 159/101
== END 2022-03-17 06:19 | disposition home or self-care (01) ==
LOC: ER 02:22
DX: R10.9 Unspecified abdominal pain (principal); I10 Essential (primary) hypertension; E10.9 Type 1 diabetes mellitus without complications; F12.10 Cannabis abuse, uncomplicated; G40.909 Epilepsy, unspecified, not intractable, without status epilepticus; Z90.49 Acquired absence of other specified parts of digestive tract; Z79.4 Long term (current) use of insulin
CPT/HCPCS: 36415; 71045; 80053; 80320; 82010; 82962; 83690; 85025; 93005; 96372; 96374; 96375; 99285; J1630; J1885; J2405; J7030; G0480

== ENCOUNTER 2022-05-06 11:09 | Inpatient (IN) | payer MEDICAID ==
[~2022-05-06] VITALS: Ht 172.7 cm; Wt 83.0 kg
[2022-05-06] MEDS ORDERED: ONDANSETRON HCL 4MG/2ML INJ IV STA (11:25)
[2022-05-06] MEDS ORDERED: SODIUM CHLORIDE 0.9% 1,000 ML IV ONE ×2 (11:30→13:45)
[2022-05-06] MEDS ORDERED: HALOPERIDOL LACTATE 5MG/ML VIAL IM ONE (11:45)
[2022-05-06 12:09] LABS: HEMATOCRIT. 33.3 % (42.0-52.0); MEAN CORPUSCULAR HEMOGLOBIN 31.6 pg (28.0-32.0); MEAN CORPUSCULAR VOLUME 95.7 fL (80.0-94.0); MEAN PLATELET VOLUME 8.6 fl (7.4-10.4); PLATELET 350 x1000/uL (130-400); RED BLOOD CELL COUNT 3.48 mill/uL (4.7-6.1); RED CELL DISTRIBUTION WIDTH 14.6 % (11.6-14.6)
[2022-05-06 12:11] LABS: CHLORIDE 107 mEq/L (98-107)
[2022-05-06 13:00] LABS: PLATELET ESTIMATE NORMAL
[2022-05-06] MEDS ORDERED: KETOROLAC 15MG/ML VIAL IV SCH (13:30)
[2022-05-06] MEDS ORDERED: METOCLOPRAMIDE HCL 10MG/2ML VIAL IV SCH (13:30)
[2022-05-06] MEDS ORDERED: HYDRALAZINE 20MG/ML VIAL IV NR (13:45)
[2022-05-06] MEDS ORDERED: MORPHINE SULFATE 4 MG/ML CPJ (NOT FOR IM USE) IV ONE (13:45)
[2022-05-06 17:02] LABS: CLARITY URINE CLEAR (CLEAR); COLOR URINE YELLOW (YELLOW); KETONES URINE TRACE (NEGATIVE); LEUKOCYTE ESTERASE URINE NEGATIVE (NEGATIVE); NITRITE URINE NEGATIVE (NEGATIVE); OCCULT BLOOD URINE 1+ (NEGATIVE); PROTEIN URINE 4+ (NEGATIVE); SPECIFIC GRAVITY URINE 1.019 (1.005-1.030)
[2022-05-06 17:18] LABS: *AMPHETAMINES SCREEN URINE NEGATIVE (NEGATIVE); *BARBITURATES SCREEN URINE NEGATIVE (NEGATIVE); *BENZODIAZEPINES SCREEN URINE NEGATIVE (NEGATIVE); *COCAINE SCREEN URINE NEGATIVE (NEGATIVE); CANNABINOID URINE SCREEN PRESUMTIVE POSITIVE (NEGATIVE); METHADONE URINE SCREEN NEGATIVE (NEGATIVE); OPIATES URINE SCREEN PRESUMTIVE POSITIVE (NEGATIVE); PHENCYCLIDINE URINE SCREEN NEGATIVE (NEGATIVE)
[2022-05-06] MEDS ORDERED: ACETAMINOPHEN 325MG TABLET PO PRN ×2 (18:15)
[2022-05-06] MEDS ORDERED: CEFTRIAXONE 1 G PREMIX 50 ML IV SCH (18:15)
[2022-05-06] MEDS ORDERED: DOCUSATE SODIUM 100MG CAPSULE PO PRN (18:15)
[2022-05-06] MEDS ORDERED: IPRATROPIUM/ALBUTEROL 0.5-3(2.5)MG/3ML NEB HHN PRN (18:15)
[2022-05-06] MEDS ORDERED: CEFTRIAXONE 1,000 MG in DEXTROSE 5% WATER 50 ML IV SCH (18:30)
[2022-05-06] MEDS ORDERED: NALOXONE HCL 0.4MG/ML VIAL IV PRN (18:30)
[2022-05-06] MEDS: MORPHINE SULFATE 2 MG/ML CPJ (NOT FOR IM USE) IV PRN (19:23)
[2022-05-06] MEDS: METOCLOPRAMIDE HCL 10MG/2ML VIAL IV SCH (19:23)
[2022-05-06] MEDS: LORAZEPAM 0.5MG TABLET PO PRN (21:38)
[2022-05-06] MEDS: HYDROCODONE/ACETAMINOPHEN 5/325MG TABLET PO PRN (22:17)
[2022-05-06 23:40] VITALS: BP 214/123
[2022-05-07] VITALS: BP 214/123
[2022-05-07] MEDS ORDERED: DEXTROSE 50% WATER 50ML SYRINGE IV PRN (00:15)
[2022-05-07] MEDS: HYDRALAZINE 20MG/ML VIAL IV PRN ×4 (00:53→21:12)
[2022-05-07] MEDS: METOCLOPRAMIDE HCL 10MG/2ML VIAL IV SCH ×5 (00:53→23:44)
[2022-05-07] MEDS: CLONIDINE 0.1MG TABLET PO PRN ×2 (00:53→04:57)
[2022-05-07] MEDS: SODIUM CHLORIDE 0.9% 1,000 ML IV SCH ×4 (00:54→23:44)
[2022-05-07 04:00] VITALS: BP 191/113
[2022-05-07] MEDS: BLOOD SUGAR DIAGNOSTIC STRIP TEST SCH ×4 (06:27→20:27)
[2022-05-07 06:49] LABS: BASOPHILS % 0.3 % (0.0-2.0); EOSINOPHILS % 0.2 % (0.0-5.0); HEMOGLOBIN. 9.7 g/dL (14.0-18.0); MEAN CORPUSCULAR HEMOGLOBIN 32.8 pg (28.0-32.0); MEAN CORPUSCULAR VOLUME 94.4 fL (80.0-94.0); MEAN PLATELET VOLUME 9.2 fl (7.4-10.4); MONOCYTES % 7.6 % (2.0-8.0); NEUTROPHILS % 80.9 % (40.0-76.0); PLATELET 282 x1000/uL (130-400); RED BLOOD CELL COUNT 2.96 mill/uL (4.7-6.1); RED CELL DISTRIBUTION WIDTH 14.6 % (11.6-14.6)
[2022-05-07] MEDS: INSULIN LISPRO 100 UNITS/ML SUBCUT SCH ×4 (07:50→21:42)
[2022-05-07 08:00] VITALS: BP 197/109
[2022-05-07] MEDS: ONDANSETRON HCL 4MG/2ML INJ IV PRN ×2 (10:09→21:12)
[2022-05-07] MEDS: ATORVASTATIN CALCIUM 20MG TABLET PO SCH (11:45)
[2022-05-07] MEDS ORDERED: AMLODIPINE 10MG TABLET PO SCH (11:45)
[2022-05-07 12:00] VITALS: BP 187/101
[2022-05-07] MEDS: MORPHINE SULFATE 2 MG/ML CPJ (NOT FOR IM USE) IV PRN ×3 (14:02→21:49)
[2022-05-07] MEDS: NIFEDIPINE XL 60MG TAB PO SCH (14:04)
[2022-05-07] MEDS: HYDRALAZINE HCL 100MG TABLET PO SCH ×2 (14:04→21:13)
[2022-05-07] MEDS: LORAZEPAM 0.5MG TABLET PO PRN (14:54)
[2022-05-07] MEDS: PIPERACILLIN/TAZOBACTAM 3.375 G in DEXTROSE 5% WATER 50 ML IV SCH ×2 (15:18→21:13)
[2022-05-07 16:00] VITALS: BP 181/98
[2022-05-07 20:00] VITALS: BP 159/97
[2022-05-07] MEDS: METOPROLOL TARTRATE 100MG TABLET PO SCH (21:00)
[2022-05-07] MEDS ORDERED: FAMOTIDINE 20MG TABLET PO SCH (21:00)
[2022-05-08] VITALS: BP 147/96
[2022-05-08] MEDS: MORPHINE SULFATE 2 MG/ML CPJ (NOT FOR IM USE) IV PRN ×2 (01:49→05:55)
[2022-05-08] MEDS: CLONIDINE 0.1MG TABLET PO PRN (03:47)
[2022-05-08] MEDS: HYDROCODONE/ACETAMINOPHEN 5/325MG TABLET PO PRN (03:48)
[2022-05-08] MEDS: HYDRALAZINE 20MG/ML VIAL IV PRN (03:48)
[2022-05-08 04:00] VITALS: BP 171/95
[2022-05-08] MEDS: METOCLOPRAMIDE HCL 10MG/2ML VIAL IV SCH ×2 (05:46→12:20)
[2022-05-08] MEDS: HYDRALAZINE HCL 100MG TABLET PO SCH ×2 (05:46→14:38)
[2022-05-08] MEDS: PIPERACILLIN/TAZOBACTAM 3.375 G in DEXTROSE 5% WATER 50 ML IV SCH ×2 (05:46→14:33)
[2022-05-08] MEDS: BLOOD SUGAR DIAGNOSTIC STRIP TEST SCH ×2 (06:20→12:08)
[2022-05-08 06:28] LABS: BASOPHILS % 0.3 % (0.0-2.0); EOSINOPHILS % 0.3 % (0.0-5.0); HEMATOCRIT. 27.2 % (42.0-52.0); HEMOGLOBIN. 9.3 g/dL (14.0-18.0); LYMPHOCYTES % 12.1 % (20.0-50.0); MEAN CORPUSCULAR HEMOGLOBIN 32.2 pg (28.0-32.0); MEAN CORPUSCULAR VOLUME 94.1 fL (80.0-94.0); MEAN PLATELET VOLUME 8.7 fl (7.4-10.4); NEUTROPHILS % 80.3 % (40.0-76.0); PLATELET 288 x1000/uL (130-400); RED CELL DISTRIBUTION WIDTH 14.6 % (11.6-14.6)
[2022-05-08] MEDS: INSULIN LISPRO 100 UNITS/ML SUBCUT SCH ×2 (07:50→12:21)
[2022-05-08] MEDS: ATORVASTATIN CALCIUM 20MG TABLET PO SCH (07:51)
[2022-05-08] MEDS: METOPROLOL TARTRATE 100MG TABLET PO SCH (07:51)
[2022-05-08] MEDS: NIFEDIPINE XL 60MG TAB PO SCH (07:52)
[2022-05-08 08:00] VITALS: BP 157/80
[2022-05-08] MEDS ORDERED: NIFEDIPINE XL 90MG TAB PO SCH (09:00)
[2022-05-08] MEDS: SODIUM CHLORIDE 0.9% 1,000 ML IV SCH (11:47)
[2022-05-08 12:00] VITALS: BP 125/81
[2022-05-12] MEDS ORDERED: LOSA25TA26 PO (23:28)
[2022-05-12] MEDS ORDERED: INSNPH SUBCUT (23:28)
[2022-05-12] MEDS ORDERED: INSU100V3 SUBCUT (23:28)
== END 2022-05-08 18:10 | disposition left against medical advice (07) | DRG 720 ==
LOC: ER 11:15 → 6WST 16:30 → EDBEDREQTM 16:32 → EDBEDREQ 16:32 → ENRESERV 20:44
PROVIDERS: ADMIT Internal Medicine; ATTEND Internal Medicine
DX: A41.9 Sepsis, unspecified organism (principal); N17.9 Acute kidney failure, unspecified; I27.20 Pulmonary hypertension, unspecified; E11.22 Type 2 diabetes mellitus with diabetic chronic kidney disease; D63.1 Anemia in chronic kidney disease; D53.9 Nutritional anemia, unspecified; I12.9 Hypertensive chronic kidney disease with stage 1 through stage 4 chronic kidney disease, or unspecified chronic kidney disease; E11.65 Type 2 diabetes mellitus with hyperglycemia; N18.9 Chronic kidney disease, unspecified; K52.9 Noninfective gastroenteritis and colitis, unspecified; I16.1 Hypertensive emergency; I16.0 Hypertensive urgency; G40.909 Epilepsy, unspecified, not intractable, without status epilepticus; E78.5 Hyperlipidemia, unspecified; R60.1 Generalized edema; F12.90 Cannabis use, unspecified, uncomplicated; Z53.29 Procedure and treatment not carried out because of patient's decision for other reasons; Z79.4 Long term (current) use of insulin; Z79.899 Other long term (current) drug therapy; Z59.00 Homelessness unspecified
CPT/HCPCS: 36415; 71045; 74176; 80048; 80053; 80061; 80305; 80320; 81003; 82570; 82962; 83036; 83735; 83880; 84100; 84156; 84443; 85025; 93005; 93306; 99285; J0360; J0696; J1630; J1815; J2270; J2405; J2543; J2765; J7030; J7060; G0480

== ENCOUNTER 2022-06-02 07:17 | Emergency (ER) | payer MEDICAID ==
[~2022-06-02] VITALS: Ht 170.2 cm; Wt 84.0 kg
[~2022-06-02 07:17] MED LIST changes: -ATOR20TA65 MT; -FAMO-135 MT; -HALO2TAB2 MT; +INSNPH SUBCUT; +INSU100V3 SUBCUT; -LOSA25TA26 MT; +LOSA25TA26 PO; -METO5TAB86 MT; -NIFE-32 PO; -ONDA4TAB5 MT
[2022-06-02] MEDS ORDERED: ONDANSETRON HCL 4MG/2ML INJ IV STA (08:03)
[2022-06-02] MEDS ORDERED: MAGNESIUM/ALUMINUM HYDROXIDE/SIMETHICONE 30ML UDC PO STA (08:03)
[2022-06-02] MEDS ORDERED: KETOROLAC 30MG/ML VIAL IV STA (08:03)
[2022-06-02 08:12] LABS: BASOPHILS % 0.8 % (0.0-2.0); EOSINOPHILS % 2.1 % (0.0-5.0); HEMATOCRIT. 32.2 % (42.0-52.0); HEMOGLOBIN. 10.8 g/dL (14.0-18.0); LYMPHOCYTES % 12.9 % (20.0-50.0); MEAN CORPUSCULAR HEMOGLOBIN 31.7 pg (28.0-32.0); MEAN CORPUSCULAR VOLUME 94.3 fL (80.0-94.0); MEAN PLATELET VOLUME 8.9 fl (7.4-10.4); MONOCYTES % 4.9 % (2.0-8.0); NEUTROPHILS % 79.3 % (40.0-76.0); PLATELET 345 x1000/uL (130-400); RED BLOOD CELL COUNT 3.41 mill/uL (4.7-6.1); RED CELL DISTRIBUTION WIDTH 14.4 % (11.6-14.6)
[2022-06-02 08:30] LABS: CHLORIDE 109 mEq/L (98-107)
[2022-06-02 08:44] LABS: ETHANOL BLOOD < 10 mg/dL
[2022-06-02 09:02] VITALS: BP 171/97
[2022-06-02] MEDS ORDERED: METOCLOPRAMIDE HCL 10MG/2ML VIAL IV ONE (10:00)
[2022-06-02] MEDS ORDERED: ONDA4TAB50 MT (10:53)
[2022-06-02 11:11] LABS: CLARITY URINE CLEAR (CLEAR); COLOR URINE YELLOW (YELLOW); KETONES URINE NEGATIVE (NEGATIVE); LEUKOCYTE ESTERASE URINE NEGATIVE (NEGATIVE); NITRITE URINE NEGATIVE (NEGATIVE); OCCULT BLOOD URINE 1+ (NEGATIVE); PH URINE 6.5 (4.5-8.0); PROTEIN URINE 4+ (NEGATIVE); SPECIFIC GRAVITY URINE 1.016 (1.005-1.030); UROBILINOGEN URINE 0.2 E.U./dL (0.2-1.0)
[2022-06-02 11:31] LABS: *AMPHETAMINES SCREEN URINE NEGATIVE (NEGATIVE); *BARBITURATES SCREEN URINE NEGATIVE (NEGATIVE); *BENZODIAZEPINES SCREEN URINE NEGATIVE (NEGATIVE); *COCAINE SCREEN URINE NEGATIVE (NEGATIVE); CANNABINOID URINE SCREEN PRESUMTIVE POSITIVE (NEGATIVE); METHADONE URINE SCREEN NEGATIVE (NEGATIVE); OPIATES URINE SCREEN NEGATIVE (NEGATIVE); PHENCYCLIDINE URINE SCREEN NEGATIVE (NEGATIVE)
[2022-06-03] MEDS ORDERED: ONDA4TAB50 MT (11:14)
[2022-06-03] MEDS ORDERED: OMEP40CA20 MT (11:14)
== END 2022-06-02 11:50 | disposition home or self-care (01) ==
LOC: ER 08:12
DX: R10.33 Periumbilical pain (principal); R11.2 Nausea with vomiting, unspecified; E11.9 Type 2 diabetes mellitus without complications; I10 Essential (primary) hypertension; G40.909 Epilepsy, unspecified, not intractable, without status epilepticus; Z79.4 Long term (current) use of insulin
CPT/HCPCS: 36415; 74176; 80053; 80305; 80320; 81003; 82962; 83690; 85025; 96374; 96375; 99291; J1885; J2405; J2765; G0480

== ENCOUNTER 2022-06-03 09:21 | Emergency (ER) | payer MEDICAID ==
[~2022-06-03] VITALS: Ht 170.2 cm; Wt 84.0 kg
[~2022-06-03 09:21] MED LIST changes: +ONDA4TAB50 MT
[2022-06-03] MEDS ORDERED: ONDANSETRON HCL 4MG/2ML INJ IV STA (09:40)
[2022-06-03] MEDS ORDERED: KETOROLAC 30MG/ML VIAL IV STA (09:40)
[2022-06-03] MEDS ORDERED: SODIUM CHLORIDE 0.9% 1,000 ML IV ONE ×2 (09:45→10:45)
[2022-06-03 10:01] LABS: HEMATOCRIT. 32.3 % (42.0-52.0); HEMOGLOBIN. 11.1 g/dL (14.0-18.0); MEAN CORPUSCULAR HEMOGLOBIN 32.1 pg (28.0-32.0); MEAN CORPUSCULAR VOLUME 93.3 fL (80.0-94.0); MEAN PLATELET VOLUME 8.9 fl (7.4-10.4); PLATELET 370 x1000/uL (130-400); RED BLOOD CELL COUNT 3.46 mill/uL (4.7-6.1); RED CELL DISTRIBUTION WIDTH 14.5 % (11.6-14.6)
[2022-06-03 10:13] LABS: CHLORIDE 108 mEq/L (98-107)
[2022-06-03 10:38] LABS: PLATELET ESTIMATE NORMAL
[2022-06-03] MEDS ORDERED: INSULIN LISPRO 100 UNITS/ML SUBCUT ONE (10:45)
[2022-06-03] MEDS ORDERED: HALOPERIDOL LACTATE 5MG/ML VIAL IM ONE (10:45)
[2022-06-03] MEDS ORDERED: OMEP40CA20 MT (11:14)
[2022-06-03] MEDS ORDERED: ONDA4TAB50 MT (11:14)
[2022-06-03 12:29] VITALS: BP 167/104
== END 2022-06-03 12:05 | disposition home or self-care (01) ==
LOC: ER 09:21
DX: R10.33 Periumbilical pain (principal); R11.2 Nausea with vomiting, unspecified; E11.65 Type 2 diabetes mellitus with hyperglycemia; I10 Essential (primary) hypertension; F12.10 Cannabis abuse, uncomplicated
CPT/HCPCS: 36415; 80053; 83690; 85025; 96361; 96372; 96374; 96375; 99284; J1630; J1815; J1885; J2405; J7030

== ENCOUNTER 2022-06-04 06:15 | Inpatient (IN) | payer MEDICAID ==
[~2022-06-04] VITALS: Ht 170.2 cm; Wt 83.9 kg
[~2022-06-04 06:15] MED LIST changes: +OMEP40CA20 MT
[2022-06-04] MEDS ORDERED: MORPHINE SULFATE 4 MG/ML CPJ (NOT FOR IM USE) IV STA (07:20)
[2022-06-04] MEDS ORDERED: ONDANSETRON HCL 4MG/2ML INJ IV STA (07:20)
[2022-06-04 08:41] LABS: BASOPHILS % 0.5 % (0.0-2.0); HEMATOCRIT. 33.6 % (42.0-52.0); HEMOGLOBIN. 11.2 g/dL (14.0-18.0); LYMPHOCYTES % 7.2 % (20.0-50.0); MEAN CORPUSCULAR HEMOGLOBIN 31.7 pg (28.0-32.0); MEAN CORPUSCULAR VOLUME 95.3 fL (80.0-94.0); MEAN PLATELET VOLUME 9.4 fl (7.4-10.4); MONOCYTES % 5.4 % (2.0-8.0); NEUTROPHILS % 86.9 % (40.0-76.0); PLATELET 373 x1000/uL (130-400); RED BLOOD CELL COUNT 3.52 mill/uL (4.7-6.1); RED CELL DISTRIBUTION WIDTH 14.6 % (11.6-14.6)
[2022-06-04 08:47] LABS: CHLORIDE 102 mEq/L (98-107)
[2022-06-04 08:49] LABS: PROTHROMBIN TIME 10.3 sec (9.6-11.0)
[2022-06-04] MEDS ORDERED: SODIUM CHLORIDE 0.9% 1,000 ML IV ONE (09:15)
[2022-06-04] MEDS ORDERED: INSULIN REGULAR (HUMULIN R) 300UNITS/3ML VIAL IV ONE (09:15)
[2022-06-04] MEDS ORDERED: ONDANSETRON HCL 4MG/2ML INJ IV SCH (09:30)
[2022-06-04] MEDS ORDERED: MORPHINE SULFATE 4 MG/ML CPJ (NOT FOR IM USE) IV SCH (09:30)
[2022-06-04] MEDS ORDERED: HYDRALAZINE 20MG/ML VIAL IV ONE (10:45)
[2022-06-04] MEDS ORDERED: NALOXONE HCL 0.4MG/ML VIAL IV PRN (13:30)
[2022-06-04] MEDS ORDERED: HYDRALAZINE 20MG/ML VIAL IV PRN (13:30)
[2022-06-04] MEDS ORDERED: MORPHINE SULFATE 4 MG/ML CPJ (NOT FOR IM USE) IV PRN (13:30)
[2022-06-04] MEDS ORDERED: DIPHENHYDRAMINE 50MG/ML VIAL IV PRN (15:00)
[2022-06-04] MEDS ORDERED: ACETAMINOPHEN 325MG TABLET PO PRN ×2 (15:00)
[2022-06-04] MEDS ORDERED: METOCLOPRAMIDE HCL 10MG/2ML VIAL IV PRN (15:00)
[2022-06-04] MEDS ORDERED: DIAZEPAM 5 MG/ML 2ML CPJ IV PRN (15:00)
[2022-06-04] MEDS: BLOOD SUGAR DIAGNOSTIC STRIP TEST SCH ×2 (15:00→21:11)
[2022-06-04] MEDS ORDERED: DEXTROSE 50% WATER 50ML SYRINGE IV PRN (15:00)
[2022-06-04] MEDS ORDERED: ONDANSETRON HCL 4MG/2ML INJ IV PRN (15:00)
[2022-06-04] MEDS ORDERED: ZOLPIDEM TARTRATE 5MG TABLET PO PRN (15:00)
[2022-06-04] MEDS: SODIUM CHLORIDE 0.9% 1,000 ML IV SCH ×2 (15:08→19:55)
[2022-06-04] MEDS: PANTOPRAZOLE SODIUM 40 MG/VIAL IV SCH (15:57)
[2022-06-04] MEDS: CLONIDINE 0.1MG TABLET PO PRN (16:01)
[2022-06-04] MEDS: HYDRALAZINE 20MG/ML VIAL IV PRN ×2 (16:01→21:14)
[2022-06-04 18:00] VITALS: BP 165/92
[2022-06-04 18:56] LABS: CLARITY URINE CLEAR (CLEAR); COLOR URINE YELLOW (YELLOW); KETONES URINE NEGATIVE (NEGATIVE); LEUKOCYTE ESTERASE URINE NEGATIVE (NEGATIVE); NITRITE URINE NEGATIVE (NEGATIVE); OCCULT BLOOD URINE TRACE (NEGATIVE); PH URINE 7.5 (4.5-8.0); PROTEIN URINE 4+ (NEGATIVE); SPECIFIC GRAVITY URINE 1.021 (1.005-1.030); UROBILINOGEN URINE 0.2 E.U./dL (0.2-1.0)
[2022-06-04 19:10] LABS: *AMPHETAMINES SCREEN URINE NEGATIVE (NEGATIVE); *BARBITURATES SCREEN URINE NEGATIVE (NEGATIVE); *BENZODIAZEPINES SCREEN URINE NEGATIVE (NEGATIVE); *COCAINE SCREEN URINE NEGATIVE (NEGATIVE); CANNABINOID URINE SCREEN PRESUMTIVE POSITIVE (NEGATIVE); METHADONE URINE SCREEN NEGATIVE (NEGATIVE); OPIATES URINE SCREEN PRESUMTIVE POSITIVE (NEGATIVE); PHENCYCLIDINE URINE SCREEN NEGATIVE (NEGATIVE)
[2022-06-04 20:00] VITALS: BP 196/118
[2022-06-04] MEDS: RISPERIDONE 1MG TABLET PO SCH (21:05)
[2022-06-04] MEDS: INSULIN LISPRO 100 UNITS/ML SUBCUT SCH (21:10)
[2022-06-04] MEDS: INSULIN GLARGINE 100 UNITS/ML SUBCUT SCH (21:11)
[2022-06-04] MEDS ORDERED: MORPHINE SULFATE 2 MG/ML CPJ (NOT FOR IM USE) IV PRN (21:30)
[2022-06-04 22:34] VITALS: BP 165/92
[2022-06-05] VITALS: BP 134/79
[2022-06-05] MEDS: PANTOPRAZOLE SODIUM 40 MG/VIAL IV SCH ×2 (03:04→14:54)
[2022-06-05] MEDS: BLOOD SUGAR DIAGNOSTIC STRIP TEST SCH ×4 (03:18→21:04)
[2022-06-05 05:45] VITALS: BP 155/89
[2022-06-05] MEDS: SODIUM CHLORIDE 0.9% 1,000 ML IV SCH ×2 (07:00→14:50)
[2022-06-05 07:04] LABS: BASOPHILS % 0.6 % (0.0-2.0); EOSINOPHILS % 0.4 % (0.0-5.0); HEMATOCRIT. 25.2 % (42.0-52.0); MEAN CORPUSCULAR HEMOGLOBIN 31.7 pg (28.0-32.0); MEAN CORPUSCULAR VOLUME 94.3 fL (80.0-94.0); MEAN PLATELET VOLUME 9.1 fl (7.4-10.4); MONOCYTES % 6.8 % (2.0-8.0); NEUTROPHILS % 75.2 % (40.0-76.0); PLATELET 269 x1000/uL (130-400); RED BLOOD CELL COUNT 2.67 mill/uL (4.7-6.1); RED CELL DISTRIBUTION WIDTH 14.5 % (11.6-14.6)
[2022-06-05 07:27] LABS: HEMOGLOBIN. 8.5 g/dL (14.0-18.0)
[2022-06-05 07:33] LABS: CHLORIDE 104 mEq/L (98-107); PHOSPHORUS 3.5 mg/dL (2.5-4.9)
[2022-06-05] MEDS: INSULIN LISPRO 100 UNITS/ML SUBCUT SCH ×4 (07:44→20:57)
[2022-06-05 08:00] VITALS: BP 168/107
[2022-06-05] MEDS: RISPERIDONE 1MG TABLET PO SCH (09:10)
[2022-06-05] MEDS: CLONIDINE 0.1MG TABLET PO PRN (09:10)
[2022-06-05] MEDS: INSULIN GLARGINE 100 UNITS/ML SUBCUT SCH ×2 (09:13→21:04)
[2022-06-05 12:00] VITALS: BP 150/88
[2022-06-05 16:00] VITALS: BP 158/103
[2022-06-05] MEDS: ARIPIPRAZOLE 2MG TABLET PO SCH (17:30)
[2022-06-05 20:00] VITALS: BP 141/77
[2022-06-05] MEDS: LISINOPRIL 20MG TABLET PO SCH (20:54)
[2022-06-05] MEDS: AMLODIPINE 5MG TABLET PO SCH (20:56)
[2022-06-06] VITALS: BP 164/82
[2022-06-06] MEDS: PANTOPRAZOLE SODIUM 40 MG/VIAL IV SCH (02:58)
[2022-06-06] MEDS: BLOOD SUGAR DIAGNOSTIC STRIP TEST SCH ×2 (03:57→09:26)
[2022-06-06 04:00] VITALS: BP 133/75
[2022-06-06 08:00] VITALS: BP 156/90
[2022-06-06] MEDS ORDERED: PAROXETINE HCL 10MG TABLET PO SCH (09:00)
[2022-06-06] MEDS: INSULIN LISPRO 100 UNITS/ML SUBCUT SCH (09:12)
[2022-06-06] MEDS: ARIPIPRAZOLE 2MG TABLET PO SCH (09:13)
[2022-06-06] MEDS: AMLODIPINE 5MG TABLET PO SCH (09:13)
[2022-06-06] MEDS: LISINOPRIL 20MG TABLET PO SCH (09:14)
[2022-06-07 09:11] LABS: SACCHAROMYCES CEREVISIAE IGM 29.4 Units (0.0-24.9)
[2022-06-07 13:09] LABS: ATYPICAL P-ANCA <1:20 titer (Neg:<1:20); CYTOPLASMIC C-ANCA <1:20 titer (Neg:<1:20); PERINUCLEAR P-ANCA <1:20 titer (Neg:<1:20)
[2022-06-07 19:06] LABS: ANTI-MYELOPEROXIDASE AB < 0.2 units (0.0-0.9); ANTI-PROTEINASE 3 ABS < 0.2 units (0.0-0.9)
[2022-06-08 13:06] LABS: ATYPICAL pANCA <1:20 titer (Neg:<1:20); SACCHAROMYCES CEREVISIAE IGG 27.8 Units (0.0-24.9)
== END 2022-06-06 16:03 | disposition left against medical advice (07) | DRG 48 ==
LOC: ER 06:15 → EDBEDREQTM 09:23 → EDBEDREQSVC 09:23 → EDBEDREQTM 10:45 → EDBEDREQ 10:45 → EDBEDREQSVC 10:46 → CANRESERV 11:37 → ENRESERV 11:37 → EDBEDREQSVC 12:44 → ENRESERV 13:16 → 6WST 18:24
PROVIDERS: ADMIT Internal Medicine; ATTEND Internal Medicine
DX: E11.43 Type 2 diabetes mellitus with diabetic autonomic (poly)neuropathy (principal); N17.9 Acute kidney failure, unspecified; R65.10 Systemic inflammatory response syndrome (SIRS) of non-infectious origin without acute organ dysfunction; E11.22 Type 2 diabetes mellitus with diabetic chronic kidney disease; F33.1 Major depressive disorder, recurrent, moderate; D64.9 Anemia, unspecified; K31.84 Gastroparesis; K52.9 Noninfective gastroenteritis and colitis, unspecified; I12.9 Hypertensive chronic kidney disease with stage 1 through stage 4 chronic kidney disease, or unspecified chronic kidney disease; N18.9 Chronic kidney disease, unspecified; E11.65 Type 2 diabetes mellitus with hyperglycemia; G40.909 Epilepsy, unspecified, not intractable, without status epilepticus; F41.9 Anxiety disorder, unspecified; F12.90 Cannabis use, unspecified, uncomplicated; Z90.49 Acquired absence of other specified parts of digestive tract; Z53.29 Procedure and treatment not carried out because of patient's decision for other reasons; Z59.01 Sheltered homelessness; Z63.8 Other specified problems related to primary support group
CPT/HCPCS: 36415; 74176; 80053; 80305; 81003; 82962; 83520; 83735; 84100; 85025; 86256; 86671; 99285; C9113; J0360; J1815; J2270; J2405; J7030

== ENCOUNTER 2022-11-11 08:34 | Inpatient (IN) | payer MEDICAID ==
[~2022-11-11] VITALS: Ht 172.7 cm; Wt 81.8 kg
[~2022-11-11 08:34] MED LIST changes: +ACET-2708 PO; +ATOR-2 PO; +BISM262T51 PO; +FAMO-135 MT; +FAMO20TA8 PO; +FAMO40TA70 MT; +HYDR100T26 PO; +KEPP500 PO; +LIP40 PO; +LOSA100T32 PO; +METO100T16 PO; +NIFE-32 MT; +ONDA4TAB11 PO; +ONDA8TAB13 MT
[2022-11-11] MEDS ORDERED: FAMOTIDINE 20MG/2ML VIAL IV STA (08:42)
[2022-11-11] MEDS ORDERED: ONDANSETRON HCL 4MG/2ML INJ IV STA (08:42)
[2022-11-11] MEDS ORDERED: LORAZEPAM 2MG/ML CPJ IV ONE (08:45)
[2022-11-11] MEDS ORDERED: SODIUM CHLORIDE 0.9% 1,000 ML IV ONE (08:45)
[2022-11-11] MEDS ORDERED: KETOROLAC 30MG/ML VIAL IV ONE (08:45)
[2022-11-11 10:59] LABS: HEMATOCRIT. 33.7 % (42.0-52.0); HEMOGLOBIN. 11.5 g/dL (14.0-18.0); MEAN CORPUSCULAR HEMOGLOBIN 31.7 pg (28.0-32.0); MEAN CORPUSCULAR VOLUME 92.4 fL (80.0-94.0); MEAN PLATELET VOLUME 9.3 fl (7.4-10.4); PLATELET 376 x1000/uL (130-400); RED BLOOD CELL COUNT 3.64 mill/uL (4.7-6.1); RED CELL DISTRIBUTION WIDTH 16.2 % (11.6-14.6)
[2022-11-11 11:06] LABS: PROTHROMBIN TIME 10.6 sec (9.6-11.0)
[2022-11-11 11:09] LABS: CHLORIDE 101 mEq/L (98-107)
[2022-11-11 11:15] LABS: ETHANOL BLOOD < 10 mg/dL; PLATELET ESTIMATE NORMAL
[2022-11-11 12:02] LABS: CLARITY URINE CLEAR (CLEAR); COLOR URINE YELLOW (YELLOW); KETONES URINE 1+ (NEGATIVE); LEUKOCYTE ESTERASE URINE NEGATIVE (NEGATIVE); NITRITE URINE NEGATIVE (NEGATIVE); OCCULT BLOOD URINE 1+ (NEGATIVE); PH URINE 7.5 (4.5-8.0); PROTEIN URINE 4+ (NEGATIVE); SPECIFIC GRAVITY URINE 1.017 (1.005-1.030)
[2022-11-11 12:34] LABS: *AMPHETAMINES SCREEN URINE NEGATIVE (NEGATIVE); *BARBITURATES SCREEN URINE NEGATIVE (NEGATIVE); *BENZODIAZEPINES SCREEN URINE NEGATIVE (NEGATIVE); *COCAINE SCREEN URINE NEGATIVE (NEGATIVE); CANNABINOID URINE SCREEN PRESUMTIVE POSITIVE (NEGATIVE); METHADONE URINE SCREEN NEGATIVE (NEGATIVE); OPIATES URINE SCREEN NEGATIVE (NEGATIVE); PHENCYCLIDINE URINE SCREEN NEGATIVE (NEGATIVE)
[2022-11-11] MEDS ORDERED: MORPHINE SULFATE 4 MG/ML CPJ (NOT FOR IM USE) IV ONE (13:00)
[2022-11-11] MEDS ORDERED: ONDANSETRON HCL 4MG/2ML INJ IV ONE (13:00)
[2022-11-11] MEDS ORDERED: INSULIN REGULAR (HUMULIN R) UD 100 UNITS/ML SYR SUBCUT ONE (13:00)
[2022-11-11] MEDS ORDERED: CLONIDINE 0.1MG TABLET PO ONE (13:00)
[2022-11-11] MEDS ORDERED: CEFTRIAXONE 1 G PREMIX 50 ML IV ONE (13:00)
[2022-11-11] MEDS ORDERED: INSULIN REGULAR (HUMULIN R) 300UNITS/3ML VIAL SUBCUT NR (13:30)
[2022-11-11] MEDS ORDERED: LORAZEPAM 2MG/ML CPJ IV PRN (18:45)
[2022-11-11] MEDS ORDERED: DOCUSATE SODIUM 100MG CAPSULE PO PRN (18:45)
[2022-11-11] MEDS ORDERED: ONDANSETRON HCL 4MG/2ML INJ IV PRN (18:45)
[2022-11-11] MEDS ORDERED: IPRATROPIUM/ALBUTEROL 0.5-3(2.5)MG/3ML NEB HHN PRN ×2 (18:45)
[2022-11-11] MEDS ORDERED: DEXTROSE 50% WATER 50ML SYRINGE IV PRN (19:45)
[2022-11-11] MEDS ORDERED: AMLODIPINE 10MG TABLET PO SCH (20:00)
[2022-11-11] MEDS ORDERED: MVI, ADULT NO.1 10 ML, FOLIC ACID 1 MG, THIAMINE HCL 100 MG in SODIUM CHLORIDE 0.9% 1,0... IV NR ×4 (20:30)
[2022-11-11] MEDS: INSULIN LISPRO 100 UNITS/ML SUBCUT SCH (21:00)
[2022-11-11] MEDS ORDERED: KETOROLAC 15MG/ML VIAL IV PRN (21:12)
[2022-11-11] MEDS: BLOOD SUGAR DIAGNOSTIC STRIP TEST SCH (21:29)
[2022-11-11] MEDS ORDERED: LISINOPRIL 10MG TABLET PO SCH (22:00)
[2022-11-11] MEDS: AMPICILLIN SOD/SULBACTAM NA 1.5 G in SODIUM CHLORIDE 0.9% 50 ML IV SCH (22:00)
[2022-11-11] MEDS: PANTOPRAZOLE SODIUM 40 MG/VIAL IV SCH (22:00)
[2022-11-11] MEDS: ENOXAPARIN 30MG/0.3ML SYR SUBCUT SCH (22:00)
[2022-11-12] MEDS: DEXT 5%/0.9% NACL 1,000 ML IV SCH ×3 (00:15→14:26)
[2022-11-12] MEDS: CLONIDINE 0.1MG TABLET PO PRN ×2 (00:45→17:04)
[2022-11-12 06:04] LABS: BASOPHILS % 1.1 % (0.0-2.0); EOSINOPHILS % 0.6 % (0.0-5.0); HEMATOCRIT. 28.1 % (42.0-52.0); HEMOGLOBIN. 9.5 g/dL (14.0-18.0); LYMPHOCYTES % 17.5 % (20.0-50.0); MEAN CORPUSCULAR HEMOGLOBIN 31.4 pg (28.0-32.0); MEAN CORPUSCULAR VOLUME 92.6 fL (80.0-94.0); MEAN PLATELET VOLUME 8.5 fl (7.4-10.4); NEUTROPHILS % 74.8 % (40.0-76.0); PLATELET 312 x1000/uL (130-400); RED BLOOD CELL COUNT 3.04 mill/uL (4.7-6.1)
[2022-11-12 06:32] LABS: PHOSPHORUS 3.9 mg/dL (2.5-4.9)
[2022-11-12 06:41] LABS: T4 FREE 1.07 ng/dL (0.76-1.46)
[2022-11-12] MEDS: BLOOD SUGAR DIAGNOSTIC STRIP TEST SCH ×4 (07:15→21:00)
[2022-11-12] MEDS: INSULIN LISPRO 100 UNITS/ML SUBCUT SCH ×4 (07:36→21:34)
[2022-11-12] MEDS ORDERED: LISINOPRIL 10MG TABLET PO SCH (09:00)
[2022-11-12] MEDS ORDERED: KETOROLAC 15MG/ML VIAL IV PRN (09:12)
[2022-11-12] MEDS: PANTOPRAZOLE SODIUM 40 MG/VIAL IV SCH (09:30)
[2022-11-12] MEDS: AMLODIPINE 10MG TABLET PO SCH ×2 (09:30→17:04)
[2022-11-12] MEDS: AMPICILLIN SOD/SULBACTAM NA 1.5 G in SODIUM CHLORIDE 0.9% 50 ML IV SCH ×2 (09:30→21:18)
[2022-11-12 10:00] VITALS: BP 148/87
[2022-11-12] MEDS: SODIUM CHLORIDE 0.9% 1,000 ML IV SCH ×3 (10:15→19:28)
[2022-11-12] MEDS ORDERED: LORAZEPAM 1MG TABLET PO PRN (11:00)
[2022-11-12] MEDS ORDERED: IPRATROPIUM BROMIDE (0.02%) 0.5MG/2.5ML NEB HHN PRN (11:15)
[2022-11-12] MEDS ORDERED: ALBUTEROL (0.083%) 2.5MG/3ML NEB HHN PRN (11:15)
[2022-11-12 12:00] VITALS: BP 136/80
[2022-11-12] MEDS ORDERED: LORAZEPAM 1MG TABLET PO SCH (12:40)
[2022-11-12 13:28] VITALS: BP 166/78
[2022-11-12] MEDS ORDERED: KETOROLAC 30MG/ML VIAL IV PRN (15:15)
[2022-11-12 16:00] VITALS: BP 144/92
[2022-11-12 20:00] VITALS: BP 126/90
[2022-11-12] MEDS: ENOXAPARIN 30MG/0.3ML SYR SUBCUT SCH (21:32)
[2022-11-12] MEDS: LISINOPRIL 20MG TABLET PO SCH (21:32)
[2022-11-13] VITALS: BP 149/90
[2022-11-13 04:00] VITALS: BP 133/88
[2022-11-13 05:47] LABS: BASOPHILS % 0.7 % (0.0-2.0); EOSINOPHILS % 2.6 % (0.0-5.0); HEMATOCRIT. 26.7 % (42.0-52.0); HEMOGLOBIN. 9.4 g/dL (14.0-18.0); LYMPHOCYTES % 28.6 % (20.0-50.0); MEAN CORPUSCULAR HEMOGLOBIN 31.8 pg (28.0-32.0); MEAN CORPUSCULAR VOLUME 90.4 fL (80.0-94.0); MEAN PLATELET VOLUME 9.1 fl (7.4-10.4); MONOCYTES % 6.9 % (2.0-8.0); NEUTROPHILS % 61.2 % (40.0-76.0); PLATELET 309 x1000/uL (130-400); RED BLOOD CELL COUNT 2.96 mill/uL (4.7-6.1); RED CELL DISTRIBUTION WIDTH 15.9 % (11.6-14.6)
[2022-11-13] MEDS: INSULIN LISPRO 100 UNITS/ML SUBCUT SCH ×3 (06:49→16:43)
[2022-11-13] MEDS: BLOOD SUGAR DIAGNOSTIC STRIP TEST SCH ×3 (06:49→16:43)
[2022-11-13 08:00] VITALS: BP 142/93
[2022-11-13] MEDS: LISINOPRIL 20MG TABLET PO SCH (08:24)
[2022-11-13] MEDS: AMLODIPINE 10MG TABLET PO SCH ×2 (08:24→16:41)
[2022-11-13] MEDS: AMPICILLIN SOD/SULBACTAM NA 1.5 G in SODIUM CHLORIDE 0.9% 50 ML IV SCH (08:28)
[2022-11-13] MEDS ORDERED: METOPROLOL TARTRATE 50MG TABLET PO SCH (09:00)
[2022-11-13] MEDS ORDERED: FAMOTIDINE 20MG/2ML VIAL IV SCH (09:00)
[2022-11-13 11:55] VITALS: BP 144/88
[2022-11-13 16:00] VITALS: BP 145/91
[2022-11-13] MEDS ORDERED: INSNPH SUBCUT ×2 (16:54→16:55)
[2022-11-13 17:57] VITALS: BP 145/91
== END 2022-11-13 21:30 | disposition home or self-care (01) | DRG 249 ==
LOC: ER 08:37 → MICUSO 13:16 → EDBEDREQSVC 11-12 09:11 → EDBEDREQTM 11-12 09:11 → 7WST 11-12 11:00
PROVIDERS: ADMIT Internal Medicine Nephrology; ATTEND Internal Medicine Nephrology
DX: A08.4 Viral intestinal infection, unspecified (principal); N17.9 Acute kidney failure, unspecified; R45.851 Suicidal ideations; D63.8 Anemia in other chronic diseases classified elsewhere; N12 Tubulo-interstitial nephritis, not specified as acute or chronic; E10.22 Type 1 diabetes mellitus with diabetic chronic kidney disease; I16.1 Hypertensive emergency; N18.32 Chronic kidney disease, stage 3b; I12.9 Hypertensive chronic kidney disease with stage 1 through stage 4 chronic kidney disease, or unspecified chronic kidney disease; I51.7 Cardiomegaly; G40.909 Epilepsy, unspecified, not intractable, without status epilepticus; E78.00 Pure hypercholesterolemia, unspecified; R09.89 Other specified symptoms and signs involving the circulatory and respiratory systems; F31.30 Bipolar disorder, current episode depressed, mild or moderate severity, unspecified; F41.9 Anxiety disorder, unspecified; Z79.4 Long term (current) use of insulin; Z90.49 Acquired absence of other specified parts of digestive tract; Z59.00 Homelessness unspecified; Z79.899 Other long term (current) drug therapy
CPT/HCPCS: 36415; 71045; 71250; 74176; 80048; 80053; 80061; 80305; 80320; 81003; 82962; 83036; 83735; 84100; 84439; 84443; 84484; 85025; 93005; 93970; 97161; 97166; 99285; C9113; J0295; J0696; J1650; J1815; J1885; J2060; J2270; J2405; J3411; J3490; J7030; J7042; A4315; G0480

== ENCOUNTER 2022-11-18 07:04 | Emergency (ER) | payer MEDICAID ==
[~2022-11-18] VITALS: Ht 175.3 cm; Wt 80.0 kg
[~2022-11-18 07:04] MED LIST changes: -ACET-2708 PO; -BISM262T51 PO; -FAMO-135 MT; -FAMO20TA8 PO; -FAMO40TA70 MT; -KEPP500 PO; -LIP40 PO; -LOSA100T32 PO; -METO100T16 PO; -NIFE-32 MT; -OMEP40CA20 MT; -ONDA4TAB11 PO; -ONDA4TAB50 MT; -ONDA8TAB13 MT
[2022-11-18] MEDS ORDERED: KETOROLAC 60MG/2ML VIAL IM ONE (10:00)
[2022-11-18] MEDS ORDERED: ONDANSETRON 4MG ODT PO ONE (10:00)
[2022-11-18 10:23] LABS: EOSINOPHILS % 0.4 % (0.0-5.0); HEMATOCRIT. 32.6 % (42.0-52.0); HEMOGLOBIN. 11.1 g/dL (14.0-18.0); LYMPHOCYTES % 9.9 % (20.0-50.0); MEAN CORPUSCULAR HEMOGLOBIN 31.2 pg (28.0-32.0); MEAN PLATELET VOLUME 8.7 fl (7.4-10.4); MONOCYTES % 3.6 % (2.0-8.0); NEUTROPHILS % 85.1 % (40.0-76.0); PLATELET 382 x1000/uL (130-400); RED BLOOD CELL COUNT 3.55 mill/uL (4.7-6.1); RED CELL DISTRIBUTION WIDTH 16.2 % (11.6-14.6)
[2022-11-18 10:34] VITALS: BP 190/118
[2022-11-18 10:39] LABS: CHLORIDE 104 mEq/L (98-107)
[2022-11-18 10:48] LABS: ETHANOL BLOOD < 10 mg/dL
[2022-11-18] MEDS ORDERED: CEPH500T MT (12:00)
[2022-11-18] MEDS ORDERED: IBUP-2029 MT (12:00)
[2022-11-18] MEDS ORDERED: ONDA4TAB50 MT (12:00)
== END 2022-11-18 12:44 | disposition home or self-care (01) ==
LOC: ER 07:22
DX: R10.33 Periumbilical pain (principal); N28.9 Disorder of kidney and ureter, unspecified; E11.9 Type 2 diabetes mellitus without complications; I10 Essential (primary) hypertension; Z90.49 Acquired absence of other specified parts of digestive tract; Z79.899 Other long term (current) drug therapy
CPT/HCPCS: 36415; 74176; 80053; 80320; 83690; 85025; 96372; 99285; J1885; Q0162; Z7610; G0480

== ENCOUNTER 2024-06-02 03:24 | Inpatient (IN) | payer MEDICAID, OTHER ==
[~2024-06-02] VITALS: Ht 170.2 cm; Wt 72.6 kg
[~2024-06-02 03:24] MED LIST changes: +CEPH500T MT; +HYDR100T11 MT; +HYDR100T11 PO; -HYDR100T26 PO; +IBUP-2029 MT; +NIFE-32 MT; +ONDA4TAB50 MT; +XALAO BOTHEYE
[2024-06-02 03:26] VITALS: O2SAT 100
[2024-06-02] MEDS: DEXT 5%/LACTATED RINGERS 1,000 ML IV SCH ×2 (04:00→04:45)
[2024-06-02] MEDS: SODIUM CHLORIDE 0.9% 1,000 ML IV ONE (04:05)
[2024-06-02 04:12] LABS: BASOPHILS % 0.7 % (0.0-2.0); DIFFERENTIAL COMMENT 0; EOSINOPHILS % 1.9 % (0.0-5.0); HEMATOCRIT. 40.8 % (42.0-52.0); HEMOGLOBIN. 12.3 g/dL (14.0-18.0); LYMPHOCYTES % 16.4 % (20.0-50.0); MEAN CORPUSCULAR HEMOGLOBIN 28.5 pg (28.0-32.0); MEAN CORPUSCULAR HGB CONC 30.1 g/dL (31.0-37.0); MEAN CORPUSCULAR VOLUME 94.8 fL (80.0-94.0); MEAN PLATELET VOLUME 9.6 fl (7.4-10.4); MONOCYTES % 5.8 % (2.0-8.0); NEUTROPHILS % 75.2 % (40.0-76.0); PLATELET 312 x1000/uL (130-400); RED CELL DISTRIBUTION WIDTH 18.6 % (11.6-14.6)
[2024-06-02 04:18] LABS: CHLORIDE 96 mEq/L (98-107); POTASSIUM 4.2 mEq/L (3.5-5.1); SODIUM 127 mEq/L (136-145)
[2024-06-02 04:19] LABS: CALCIUM 8.4 mg/dL (8.7-10.4); CARBON DIOXIDE 19 mEq/L (21-32)
[2024-06-02 04:24] LABS: CREATININE 4.9 mg/dL (0.6-1.3); UREA NITROGEN BLOOD 52 mg/dL (9-23)
[2024-06-02 04:25] LABS: TROPONIN I HIGH SENSITIVITY 21 ng/L (3.0-53)
[2024-06-02 04:26] LABS: ALANINE AMINOTRANSFERASE 36 IU/L (10-49); ALBUMIN 4.1 g/dL (3.2-4.8); ASPARTATE AMINOTRANSFERASE 30 IU/L (<34); PHOSPHORUS 4.7 mg/dL (2.5-4.9)
[2024-06-02 04:27] LABS: BILIRUBIN TOTAL 0.3 mg/dL (0.1-1.0); PROTEIN TOTAL 6.8 g/dL (6.0-8.3)
[2024-06-02] MEDS ORDERED: DEXTROSE 50% WATER 50ML SYRINGE IV PRN ×2 (04:45→12:00)
[2024-06-02] MEDS ORDERED: SODIUM PHOSPHATE 15 MMOL in SODIUM CHLORIDE 0.9% 245 ML IV PRN (04:45)
[2024-06-02] MEDS: HALOPERIDOL LACTATE 5MG/ML VIAL IM ONE (04:45)
[2024-06-02] MEDS ORDERED: KCL 20MEQ/100ML PREMIX 100 ML IV PRN (04:45)
[2024-06-02] MEDS ORDERED: BLOOD SUGAR DIAGNOSTIC STRIP TEST PRN (04:45)
[2024-06-02] MEDS ORDERED: POTASSIUM CHLORIDE 40 MEQ in SODIUM CHLORIDE 0.9% 230 ML IV PRN (04:45)
[2024-06-02] MEDS ORDERED: MAGNESIUM 2 G PREMIX 50 ML IV PRN (04:45)
[2024-06-02] MEDS ORDERED: INSULIN REGULAR (DRIP) 100 UNITS in SODIUM CHLORIDE 0.9% 99 ML IV SCH (04:45)
[2024-06-02] MEDS: DIPHENHYDRAMINE 50MG/ML VIAL IV ONE (04:46)
[2024-06-02] MEDS: LORAZEPAM 2MG/ML INJ IV ONE (04:46)
[2024-06-02] MEDS: BLOOD SUGAR DIAGNOSTIC STRIP TEST SCH ×2 (05:10→12:30)
[2024-06-02 05:21] LABS: BETA HYDROXYBUTYRATE 0.1 mMol/L (0.0-0.3)
[2024-06-02] MEDS: INSULIN REGULAR (HUMULIN R) 1000UNITS/10ML VIAL IV ONE (05:24)
[2024-06-02] MEDS: LACTATED RINGERS 1,000 ML IV SCH (05:25)
[2024-06-02] MEDS: LIDOCAINE HCL/EPINEPHRINE 1%-EPI 1:100,000 20ML VIAL INFIL ONE (05:27)
[2024-06-02] MEDS: INSULIN REGULAR 100U/100ML PMX 100 ML IV SCH (05:33)
[2024-06-02 05:35] LABS: LACTIC ACID 5.9 mmol/L (0.4-2.0)
[2024-06-02 05:37] LABS: GLUCOSE 961 mg/dL (70-105)
[2024-06-02] MEDS ORDERED: LACTATED RINGERS 1,000 ML IV SCH (05:45)
[2024-06-02] MEDS: CEFTRIAXONE 1GM/50ML 50 ML IV ONE (06:23)
[2024-06-02 07:37] LABS: CLARITY URINE CLEAR (CLEAR); COLOR URINE YELLOW (YELLOW); GLUCOSE URINE 3+ (NEGATIVE); KETONES URINE NEGATIVE (NEGATIVE); LEUKOCYTE ESTERASE URINE NEGATIVE (NEGATIVE); NITRITE URINE NEGATIVE (NEGATIVE); OCCULT BLOOD URINE 2+ (NEGATIVE); PH URINE 6.5 (4.5-8.0); PROTEIN URINE 2+ (NEGATIVE); SPECIFIC GRAVITY URINE 1.018 (1.005-1.030); UROBILINOGEN URINE 0.2 E.U./dL (0.2-1.0)
[2024-06-02 08:00] LABS: RBC URINE 0-2 /hpf (0-2); SQUAMOUS EPITHELIAL CELL URINE RARE /lpf (RARE/1+); WBC URINE 0-2 /hpf (0-2)
[2024-06-02 08:01] LABS: BACTERIA URINE NONE SEEN
[2024-06-02 08:27] LABS: *AMPHETAMINES SCREEN URINE NEGATIVE (NEGATIVE); *BARBITURATES SCREEN URINE NEGATIVE (NEGATIVE); *BENZODIAZEPINES SCREEN URINE PRESUMPTIVE POSITIVE (NEGATIVE); *COCAINE SCREEN URINE NEGATIVE (NEGATIVE); METHADONE URINE SCREEN NEGATIVE (NEGATIVE); OPIATES URINE SCREEN NEGATIVE (NEGATIVE); PHENCYCLIDINE URINE SCREEN NEGATIVE (NEGATIVE)
[2024-06-02 08:28] LABS: CANNABINOID URINE SCREEN PRESUMPTIVE POSITIVE (NEGATIVE); ECSTASY MDMA SCREEN URINE NEGATIVE (NEGATIVE)
[2024-06-02 10:28] LABS: CHLORIDE 109 mEq/L (98-107); POTASSIUM 3.4 mEq/L (3.5-5.1); SODIUM 142 mEq/L (136-145)
[2024-06-02 10:29] LABS: CARBON DIOXIDE 25 mEq/L (21-32)
[2024-06-02 10:34] LABS: CREATININE 4.3 mg/dL (0.6-1.3); GLUCOSE 88 mg/dL (70-105); UREA NITROGEN BLOOD 48 mg/dL (9-23)
[2024-06-02 10:36] LABS: ALANINE AMINOTRANSFERASE 33 IU/L (10-49); ALBUMIN 3.8 g/dL (3.2-4.8); ASPARTATE AMINOTRANSFERASE 38 IU/L (<34); BILIRUBIN TOTAL 0.2 mg/dL (0.1-1.0)
[2024-06-02 10:37] LABS: PROTEIN TOTAL 6.6 g/dL (6.0-8.3)
[2024-06-02] MEDS: INSULIN GLARGINE 100 UNITS/ML SUBCUT SCH (12:35)
[2024-06-02] MEDS: INSULIN LISPRO (MEDIUM DOSE) 100 UNITS/ML SUBCUT SCH (13:20)
[2024-06-02 18:44] VITALS: BP 165/72; PULSE 65; RESP 20; TEMP 36.6696; O2SAT 99
[2024-06-02 20:00] VITALS: BP_SYST 170; BP_SYST 196; BP_DIAS 104; BP_DIAS 111; PULSE 85; RESP 18; RESP 20; TEMP 37.11408; TEMP 37.1408; O2SAT 98
[2024-06-02] MEDS: HYDRALAZINE 20MG/ML VIAL IV PRN (22:11)
[2024-06-03] VITALS: BP 156/93; PULSE 92; RESP 20; TEMP 36.61404; O2SAT 98
[2024-06-03 04:00] VITALS: BP 155/98; PULSE 97; RESP 20; TEMP 37.00296; O2SAT 98
[2024-06-03 08:00] VITALS: BP 135/91; PULSE 89; RESP 20; TEMP 36.6696; TEMP 36.66960; O2SAT 100
[2024-06-03] MEDS ORDERED: NIFEDIPINE XL 60MG TAB PO SCH (09:00)
[2024-06-03] MEDS ORDERED: LOSARTAN 25 MG TABLET PO SCH (09:00)
[2024-06-03] MEDS: FOLIC ACID/VITAMIN B COMP W-C TABLET PO SCH (09:52)
[2024-06-03 12:19] LABS: BASOPHILS % 0.8 % (0.0-2.0); EOSINOPHILS % 1.9 % (0.0-5.0); HEMATOCRIT. 41.8 % (42.0-52.0); HEMOGLOBIN. 13.3 g/dL (14.0-18.0); LYMPHOCYTES % 16.9 % (20.0-50.0); MEAN CORPUSCULAR HEMOGLOBIN 28.5 pg (28.0-32.0); MEAN CORPUSCULAR HGB CONC 31.9 g/dL (31.0-37.0); MEAN CORPUSCULAR VOLUME 89.5 fL (80.0-94.0); MEAN PLATELET VOLUME 8.8 fl (7.4-10.4); MONOCYTES % 4.9 % (2.0-8.0); NEUTROPHILS % 75.5 % (40.0-76.0); PLATELET 299 x1000/uL (130-400); RED BLOOD CELL COUNT 4.67 mill/uL (4.7-6.1); RED CELL DISTRIBUTION WIDTH 19.7 % (11.6-14.6); WHITE BLOOD COUNT 11.7 x1000/uL (4.5-11.0)
[2024-06-03 12:26] LABS: POTASSIUM 3.7 mEq/L (3.5-5.1)
[2024-06-03 12:27] LABS: CALCIUM 8.8 mg/dL (8.7-10.4)
[2024-06-03 12:32] LABS: CREATININE 3.7 mg/dL (0.6-1.3)
[2024-06-03 12:52] LABS: HEPATITIS B SURFACE ANTIGEN NEGATIVE (Negative)
[2024-06-03] MEDS ORDERED: SEVELAMER CARBONATE 800 MG TABLET PO SCH (13:10)
[2024-06-03 13:13] LABS: HEPATITIS A AB IGM NEGATIVE (Negative); HEPATITIS B CORE AB IGM NEGATIVE (Negative); HEPATITIS C AB NON REACTIVE (Neg) (Negative)
[2024-06-03] MEDS ORDERED: HYDRALAZINE HCL 100MG TABLET PO SCH (14:00)
== END 2024-06-03 14:15 | disposition left against medical advice (07) | DRG 420 ==
LOC: ER 03:24 → 5WST 05:57 → EDBEDREQSVC 11:33 → 7WST 18:17
PROVIDERS: ADMIT Internal Medicine; ATTEND Internal Medicine
DX: E10.65 Type 1 diabetes mellitus with hyperglycemia (principal); G93.40 Encephalopathy, unspecified; E87.20 Acidosis, unspecified; I12.0 Hypertensive chronic kidney disease with stage 5 chronic kidney disease or end stage renal disease; E10.22 Type 1 diabetes mellitus with diabetic chronic kidney disease; D64.9 Anemia, unspecified; I16.0 Hypertensive urgency; R56.9 Unspecified convulsions; N18.6 End stage renal disease; Z53.29 Procedure and treatment not carried out because of patient's decision for other reasons; Z99.2 Dependence on renal dialysis; Z91.158 Patient's noncompliance with renal dialysis for other reason; Z59.00 Homelessness unspecified; Z90.49 Acquired absence of other specified parts of digestive tract; Z79.4 Long term (current) use of insulin
CPT/HCPCS: 36415; 71045; 80048; 80053; 80305; 81003; 82010; 82962; 83605; 83735; 83930; 84100; 84145; 84484; 85025; 86705; 86709; 87340; 99291; J0360; J0696; J1200; J1630; J1815; J2060; J3490; J7030; J7120; J7121

== ENCOUNTER 2024-07-15 08:57 | Inpatient (IN) | payer OTHER ==
[~2024-07-15] VITALS: Ht 175.3 cm; Wt 79.5 kg
[2024-07-15] VITALS (13 sets, daily range): BP systolic 116–209; BP diastolic 72–174; PULSE 68–104; RESP 13–22; TEMP 36.50292–37.2252; O2SAT 97–100
[2024-07-15] MEDS ORDERED: DICYCLOMINE 10 MG/5 ML ORAL SYR PO STA (09:04)
[2024-07-15 09:26] LABS: EOSINOPHILS % 3.9 % (0.0-5.0); HEMATOCRIT. 41.1 % (42.0-52.0); HEMOGLOBIN. 13.3 g/dL (14.0-18.0); LYMPHOCYTES % 16.9 % (20.0-50.0); MEAN CORPUSCULAR HEMOGLOBIN 28.8 pg (28.0-32.0); MEAN CORPUSCULAR HGB CONC 32.3 g/dL (31.0-37.0); MEAN CORPUSCULAR VOLUME 89.3 fL (80.0-94.0); MEAN PLATELET VOLUME 8.8 fl (7.4-10.4); MONOCYTES % 6.9 % (2.0-8.0); NEUTROPHILS % 71.3 % (40.0-76.0); PLATELET 267 x1000/uL (130-400); RED BLOOD CELL COUNT 4.61 mill/uL (4.7-6.1); RED CELL DISTRIBUTION WIDTH 17.3 % (11.6-14.6); WHITE BLOOD COUNT 7.4 x1000/uL (4.5-11.0)
[2024-07-15 09:30] LABS: CHLORIDE 101 mEq/L (98-107); POTASSIUM 3.9 mEq/L (3.5-5.1); SODIUM 131 mEq/L (136-145)
[2024-07-15 09:31] LABS: CALCIUM 9.2 mg/dL (8.7-10.4); CARBON DIOXIDE 21 mEq/L (21-32)
[2024-07-15] MEDS: MORPHINE SULFATE 4 MG/ML INJ (FOR IV/IM USE) IV STA (09:34)
[2024-07-15] MEDS: ONDANSETRON HCL 4MG/2ML INJ IV STA (09:34)
[2024-07-15] MEDS: FAMOTIDINE 20MG/2ML VIAL IV STA (09:34)
[2024-07-15 09:36] LABS: CREATININE 4.8 mg/dL (0.6-1.3); INR 0.9; UREA NITROGEN BLOOD 49 mg/dL (9-23)
[2024-07-15 09:37] LABS: TROPONIN I HIGH SENSITIVITY 14 ng/L (3.0-53)
[2024-07-15 09:38] LABS: ALANINE AMINOTRANSFERASE 21 IU/L (10-49); ALBUMIN 3.9 g/dL (3.2-4.8); ASPARTATE AMINOTRANSFERASE 19 IU/L (<34); BILIRUBIN TOTAL 0.3 mg/dL (0.1-1.0)
[2024-07-15] MEDS: DICYCLOMINE HCL 10MG CAPSULE PO NR (09:41)
[2024-07-15] MEDS: MAGNESIUM/ALUMINUM HYDROXIDE/SIMETHICONE 30ML UDC PO STA (09:41)
[2024-07-15 10:07] LABS: BILIRUBIN DIRECT < 0.1 mg/dL (<=3.0)
[2024-07-15 10:27] LABS: GLUCOSE 523 mg/dL (70-105)
[2024-07-15] MEDS: SODIUM CHLORIDE 0.9% 1,000 ML IV ONE (10:34)
[2024-07-15] MEDS: INSULIN REGULAR (HUMULIN R) 1000UNITS/10ML VIAL IV ONE (10:48)
[2024-07-15 11:29] LABS: CLARITY URINE CLEAR (CLEAR); COLOR URINE YELLOW (YELLOW); GLUCOSE URINE 3+ (NEGATIVE); KETONES URINE NEGATIVE (NEGATIVE); LEUKOCYTE ESTERASE URINE NEGATIVE (NEGATIVE); NITRITE URINE NEGATIVE (NEGATIVE); OCCULT BLOOD URINE TRACE (NEGATIVE); PH URINE 6.5 (4.5-8.0); PROTEIN URINE 3+ (NEGATIVE); SPECIFIC GRAVITY URINE 1.016 (1.005-1.030); UROBILINOGEN URINE 0.2 E.U./dL (0.2-1.0)
[2024-07-15 11:58] LABS: SQUAMOUS EPITHELIAL CELL URINE FEW /lpf (RARE/1+)
[2024-07-15 11:59] LABS: BACTERIA URINE NONE SEEN; RBC URINE 0-2 /hpf (0-2); WBC URINE NONE SEEN /hpf (0-2)
[2024-07-15] MEDS ORDERED: ONDANSETRON HCL 4MG/2ML INJ IV PRN (12:30)
[2024-07-15] MEDS: HYDRALAZINE HCL 100MG TABLET PO SCH (13:59)
[2024-07-15] MEDS: ENOXAPARIN 30MG/0.3ML SYR SUBCUT SCH (13:59)
[2024-07-15 15:17] LABS: *AMPHETAMINES SCREEN URINE NEGATIVE (NEGATIVE); *BARBITURATES SCREEN URINE NEGATIVE (NEGATIVE); *BENZODIAZEPINES SCREEN URINE NEGATIVE (NEGATIVE)
[2024-07-15 15:18] LABS: *COCAINE SCREEN URINE NEGATIVE (NEGATIVE); CANNABINOID URINE SCREEN PRESUMPTIVE POSITIVE (NEGATIVE); ECSTASY MDMA SCREEN URINE NEGATIVE (NEGATIVE); METHADONE URINE SCREEN NEGATIVE (NEGATIVE); OPIATES URINE SCREEN PRESUMPTIVE POSITIVE (NEGATIVE); PHENCYCLIDINE URINE SCREEN NEGATIVE (NEGATIVE)
[2024-07-15 15:29] LABS: HEPATITIS B SURFACE ANTIGEN NEGATIVE (Negative)
[2024-07-15 15:31] LABS: HEPATITIS B SURFACE ANTIGEN NEGATIVE (Negative)
[2024-07-15] MEDS: PANTOPRAZOLE SODIUM 40 MG/VIAL IV SCH (15:42)
[2024-07-15] MEDS: METOCLOPRAMIDE HCL 10MG/2ML VIAL IV SCH (15:42)
[2024-07-15 15:49] LABS: HEPATITIS A AB IGM NEGATIVE (Negative)
[2024-07-15 15:50] LABS: HEPATITIS B CORE AB IGM NEGATIVE (Negative); HEPATITIS C AB NON REACTIVE (Neg) (Negative)
[2024-07-15 15:52] LABS: HEPATITIS C AB NON REACTIVE (Neg) (Negative)
[2024-07-15] MEDS: CLONIDINE 0.1MG TABLET PO PRN (16:22)
[2024-07-15] MEDS: ACETAMINOPHEN 325MG TABLET PO PRN (16:23)
[2024-07-15] MEDS ORDERED: HYDRALAZINE 20MG/ML VIAL IV PRN (16:45)
[2024-07-15] MEDS ORDERED: HYDRALAZINE 10 MG in SODIUM CHLORIDE 0.9% 49.5 ML IV PRN (16:45)
[2024-07-15] MEDS: INSULIN REGULAR (HUMULIN R) 1000UNITS/10ML VIAL SUBCUT SCH (17:00)
[2024-07-15] MEDS ORDERED: ZOLPIDEM TARTRATE 5MG TABLET PO PRN (21:00)
[2024-07-15] MEDS: LATANOPROST 0.005% OPHTH DROPS 2.5ML BOTHEYE SCH (22:01)
[2024-07-15] MEDS: ATORVASTATIN CALCIUM 40MG TABLET PO SCH (22:01)
[2024-07-15] MEDS: NIFEDIPINE XL 60MG TAB PO SCH (22:02)
[2024-07-15] MEDS: MORPHINE SULFATE 2 MG/ML INJ (NOT FOR IM USE) IV PRN (22:02)
[2024-07-16] VITALS: BP 113/52; PULSE 84; RESP 15; TEMP 37.33632; O2SAT 98
[2024-07-16 04:00] VITALS: BP 130/83; PULSE 80; RESP 16; TEMP 36.55848; O2SAT 98
[2024-07-16] MEDS ORDERED: DEXTROSE 50% WATER 50ML SYRINGE IV PRN (05:15)
[2024-07-16] MEDS: BLOOD SUGAR DIAGNOSTIC STRIP TEST SCH (06:55)
[2024-07-16] MEDS: INSULIN LISPRO 100 UNITS/ML SUBCUT SCH (07:02)
[2024-07-16 07:21] LABS: BASOPHILS % 0.9 % (0.0-2.0); DIFFERENTIAL COMMENT 0; EOSINOPHILS % 3.3 % (0.0-5.0); HEMATOCRIT. 40.5 % (42.0-52.0); HEMOGLOBIN. 13.1 g/dL (14.0-18.0); LYMPHOCYTES % 21.9 % (20.0-50.0); MEAN CORPUSCULAR HEMOGLOBIN 28.3 pg (28.0-32.0); MEAN CORPUSCULAR HGB CONC 32.4 g/dL (31.0-37.0); MEAN CORPUSCULAR VOLUME 87.6 fL (80.0-94.0); MEAN PLATELET VOLUME 9.1 fl (7.4-10.4); MONOCYTES % 7.4 % (2.0-8.0); NEUTROPHILS % 66.5 % (40.0-76.0); PLATELET 301 x1000/uL (130-400); RED BLOOD CELL COUNT 4.63 mill/uL (4.7-6.1); RED CELL DISTRIBUTION WIDTH 17.4 % (11.6-14.6); WHITE BLOOD COUNT 7.5 x1000/uL (4.5-11.0)
[2024-07-16 07:39] LABS: CALCIUM 8.9 mg/dL (8.7-10.4)
[2024-07-16 07:44] LABS: CREATININE 4.1 mg/dL (0.6-1.3)
[2024-07-16 08:00] VITALS: BP 107/60; PULSE 107; RESP 16; TEMP 36.6696; O2SAT 98
[2024-07-16] MEDS: LOSARTAN 25 MG TABLET PO SCH (08:19)
[2024-07-16 12:00] VITALS: BP 116/65; PULSE 91; RESP 20; TEMP 36.83628; O2SAT 99
[2024-07-16] MEDS ORDERED: NALOXONE HCL 0.4MG/ML VIAL IV PRN (15:00)
[2024-07-16 16:00] VITALS: PULSE 105; RESP 18; TEMP 36.6696; O2SAT 98
[2024-07-16 20:00] VITALS: BP 111/68; RESP 17; TEMP 36.6696; O2SAT 98
[2024-07-17] VITALS (13 sets, daily range): BP systolic 101–142; BP diastolic 60–85; PULSE 71–112; RESP 14–18; TEMP 36.44736–36.78072; O2SAT 96–99
[2024-07-17 06:48] LABS: POTASSIUM 3.8 mEq/L (3.5-5.1)
[2024-07-17 07:05] LABS: CREATININE 5.4 mg/dL (0.6-1.3)
[2024-07-17 07:53] LABS: BASOPHILS % 0.6 % (0.0-2.0); DIFFERENTIAL COMMENT 0; EOSINOPHILS % 2.7 % (0.0-5.0); HEMATOCRIT. 39.8 % (42.0-52.0); LYMPHOCYTES % 22.2 % (20.0-50.0); MEAN CORPUSCULAR HEMOGLOBIN 28.5 pg (28.0-32.0); MEAN CORPUSCULAR HGB CONC 32.5 g/dL (31.0-37.0); MEAN CORPUSCULAR VOLUME 87.7 fL (80.0-94.0); MEAN PLATELET VOLUME 8.9 fl (7.4-10.4); MONOCYTES % 8.3 % (2.0-8.0); NEUTROPHILS % 66.2 % (40.0-76.0); PLATELET 296 x1000/uL (130-400); RED BLOOD CELL COUNT 4.54 mill/uL (4.7-6.1); RED CELL DISTRIBUTION WIDTH 17.3 % (11.6-14.6); WHITE BLOOD COUNT 8.2 x1000/uL (4.5-11.0)
== END 2024-07-17 14:48 | disposition home or self-care (01) | DRG 48 ==
LOC: ER 08:57 → EDBEDREQ 09:13 → 3WST 10:40 → EDBEDREQ 10:54 → EDBEDREQTM 10:54
PROVIDERS: ADMIT Internal Medicine; ATTEND Internal Medicine
PROC: 5A1D70Z Performance of Urinary Filtration, Intermittent, Less than 6 Hours Per Day (ICD-10-PCS; principal; 2024-07-15)
PROC: 5A1D70Z Performance of Urinary Filtration, Intermittent, Less than 6 Hours Per Day (ICD-10-PCS; 2024-07-17)
DX: E11.43 Type 2 diabetes mellitus with diabetic autonomic (poly)neuropathy (principal); I12.0 Hypertensive chronic kidney disease with stage 5 chronic kidney disease or end stage renal disease; E11.22 Type 2 diabetes mellitus with diabetic chronic kidney disease; E11.65 Type 2 diabetes mellitus with hyperglycemia; D64.9 Anemia, unspecified; E78.5 Hyperlipidemia, unspecified; K31.84 Gastroparesis; N18.6 End stage renal disease; I16.0 Hypertensive urgency; Z99.2 Dependence on renal dialysis; Z59.00 Homelessness unspecified; Z90.49 Acquired absence of other specified parts of digestive tract
CPT/HCPCS: 36415; 80048; 80076; 80305; 81003; 82962; 83036; 84484; 85025; 86705; 86709; 87340; 90935; 93005; 99285; J0360; J1650; J1815; J2270; J2405; J2470; J2765; J3490; J7030

== ENCOUNTER 2024-08-18 12:41 | Emergency (ER) | payer OTHER ==
[~2024-08-18] VITALS: Ht 177.8 cm; Wt 82.0 kg
[~2024-08-18 12:41] MED LIST changes: -CEPH500T MT; -HYDR100T11 MT; -IBUP-2029 MT; -LOSA25TA26 PO
[2024-08-18 13:03] VITALS: O2SAT 96
[2024-08-18 13:35] LABS: BASOPHILS % 0.8 % (0.0-2.0); EOSINOPHILS % 0.9 % (0.0-5.0); HEMATOCRIT. 41.5 % (42.0-52.0); HEMOGLOBIN. 13.3 g/dL (14.0-18.0); LYMPHOCYTES % 13.2 % (20.0-50.0); MEAN CORPUSCULAR HEMOGLOBIN 28.8 pg (28.0-32.0); MEAN CORPUSCULAR VOLUME 90.1 fL (80.0-94.0); MEAN PLATELET VOLUME 9.6 fl (7.4-10.4); MONOCYTES % 3.5 % (2.0-8.0); NEUTROPHILS % 81.6 % (40.0-76.0); PLATELET 291 x1000/uL (130-400); WHITE BLOOD COUNT 10.3 x1000/uL (4.5-11.0)
[2024-08-18 13:40] LABS: CHLORIDE 104 mEq/L (98-107); POTASSIUM 4.5 mEq/L (3.5-5.1); SODIUM 136 mEq/L (136-145)
[2024-08-18 13:41] LABS: CALCIUM 9.4 mg/dL (8.7-10.4); CARBON DIOXIDE 20 mEq/L (21-32)
[2024-08-18 13:46] LABS: CREATININE 4.7 mg/dL (0.6-1.3); UREA NITROGEN BLOOD 51 mg/dL (9-23)
[2024-08-18 13:48] LABS: ALANINE AMINOTRANSFERASE 60 IU/L (10-49); ALBUMIN 4.2 g/dL (3.2-4.8); ASPARTATE AMINOTRANSFERASE 37 IU/L (<34); BILIRUBIN TOTAL 0.4 mg/dL (0.1-1.0); PROTEIN TOTAL 7.3 g/dL (6.0-8.3)
[2024-08-18 14:04] LABS: GLUCOSE 491 mg/dL (70-105)
[2024-08-18 14:05] LABS: BILIRUBIN DIRECT < 0.1 mg/dL (<=3.0)
[2024-08-18] MEDS: SODIUM CHLORIDE 0.9% 250 ML IV ONE (15:14)
[2024-08-18] MEDS: ONDANSETRON HCL 4MG/2ML INJ IV ONE (15:16)
[2024-08-18] MEDS: MORPHINE SULFATE 4 MG/ML INJ (FOR IV/IM USE) IV NR (15:17)
[2024-08-18] MEDS: INSULIN LISPRO 100 UNITS/ML SUBCUT NR (15:18)
[2024-08-18 15:44] LABS: TROPONIN I HIGH SENSITIVITY 20 ng/L (3.0-53)
[2024-08-18 15:49] LABS: ETHANOL BLOOD < 10 mg/dL (<10)
[2024-08-18] MEDS: HYDRALAZINE 20MG/ML VIAL IV ONE (16:54)
[2024-08-18] MEDS: HYDRALAZINE 20MG/ML VIAL IV NR (17:52)
[2024-08-18 18:01] VITALS: BP 137/70; PULSE 91; RESP 19; TEMP 36.44736; O2SAT 97
== END 2024-08-18 18:16 | disposition short-term general hospital (02) ==
LOC: ER 12:41 → EDBEDREQ 13:43 → CANBEDREQ 15:59 → ER 18:16
DX: E11.65 Type 2 diabetes mellitus with hyperglycemia (principal); N28.9 Disorder of kidney and ureter, unspecified; I10 Essential (primary) hypertension; Z79.899 Other long term (current) drug therapy; Z79.4 Long term (current) use of insulin; Z99.2 Dependence on renal dialysis; Z91.158 Patient's noncompliance with renal dialysis for other reason
CPT/HCPCS: 80076; 80048; 80320; 83880; 83690; 85025; 84484; 36415; 96361; 96372; 96374; 96375; 99285; J0360; J1815; J2405; J2270; Z7610; G0480